=== PATIENT | male | born 1935 | race Caucasian/White ===

== ENCOUNTER 2017-01-21 01:59 | Inpatient (IN) ==
[2017-01-21] MEDS ORDERED: Ipratropium/Albuterol Neb 3 ML IH ONE (02:08)
[2017-01-21] MEDS ORDERED: Furosemide 40 MG/4 ML VIAL IVP ONE (02:35)
[2017-01-21] MEDS ORDERED: Nitroglycerin 1 INCH/GM PACKET TP ONE (02:35)
[2017-01-21 02:55] LABS: Basophils % 0.3 %; Eosinophils # 0.3 K/mcL (0.0-0.6); Hematocrit 36.1 % (37.5-50.1); Hemoglobin 10.8 g/dL (12.9-16.9); Immature Granulocytes % 0.7 % (0-4); Lymphocytes # 1.8 K/mcL (0.6-4.6); Mean Corpuscular HGB Conc 29.9 g/dL (31.6-35.5); Mean Corpuscular Hemoglobin 25.2 pg (28.0-33.3); Mean Corpuscular Volume 84.1 fL (83.0-100.0); Mean Platelet Volume 8.7 fL (9.4-12.4); Monocytes # 1.1 K/mcL (0.0-1.3); Monocytes % 8.4 %; Neutrophils # 9.6 K/mcL (1.6-8.9); Platelet Count 253 K/mcL (140-400); Red Blood Count 4.29 M/mcL (4.19-5.50); Red Cell Distribution Width 15.4 % (11.5-14.5); Segmented Neutrophils % 74.6 %
[2017-01-21 02:59] LABS: INR 1.3; Prothrombin Time 13.8 Seconds (9.4-12.1)
[2017-01-21 03:05] LABS: Calcium 10.2 mg/dL (8.6-10.8); Potassium 5.7 mEq/L (3.5-4.5)
[2017-01-21] MEDS ORDERED: Aspirin 81 MG TAB.CHEW PO ONE (03:50)
--- NOTE | 2017-01-21 03:52 | Emergency Department Note ---
Disposition Clinical Impression: Elevated troponin CHF exacerbation Qualifiers: Congestive heart failure type: unspecified congestive heart failure type Qualified Code(s): I50.9 - Heart failure, unspecified Disposition: Admitted As Inpatient Condition: Good General Adult HPI - General Chief complaint: ED Shortness of Breath/Dyspnea Stated complaint: SOB Time Seen by Provider: 01/21/17 02:03 Source: patient Limitations: no limitations Nursing Notes Reviewed: Yes Vital Signs Reviewed: Yes - History of Present Illness HPI Narrative: Patient presents to the ED for evaluation of shortness of breath. Patient woke his secondary to feeling like he could not breathe. Complained of wheezing. Patient has no history of COPD. Extensive cardiac history. Patient' s medication list that is present shows significant cardiac meds including Lasix 40 mg. Patient given limited history at this time secondary to respiratory distress. Denies fever. Denies productive cough. Pain Scale: 0 - Related Data Previous Rx's Medication Instructions Recorded Ibuprofen [Motrin] 400 mg PO Q8HR #30 tablet 05/28/16 OxyCODONE/APAP 5/325 [Percocet 1 each PO Q6HR PRN #8 tablet 05/28/16 5/325 MG] Allergies Allergy/AdvReac Type Severity Reaction Status Date / Time Bmvhnok-Vgr-Yld Reductase Allergy See Verified 12/22/15 07:54 Inhibitor Comments [Statins] Review of Systems: CONSTITUTIONAL: No weight loss, fever, chills, weakness or fatigue. HEENT: Eyes: No visual changes. Ears, Nose, Throat: No hearing loss, difficulty talking or unable to swallow. SKIN: No rash or itching. CARDIOVASCULAR: No chest pain, chest pressure or chest discomfort. No palpitations RESPIRATORY: Shortness of breath. GASTROINTESTINAL: No anorexia, nausea, vomiting or diarrhea. No abdominal pain or blood. GENITOURINARY: No burning on urination or hematuria. NEUROLOGICAL: No headache, dizziness, syncope, paralysis, ataxia, numbness or tingling in the extremities. No change in bowel or bladder control. MUSCULOSKELETAL: No muscle pain, back pain, joint pain or stiffness. Past Medical History - Past Medical History Medical history: Reports: arthritis, diabetes, GERD, hyperlipidemia, hypertension, myocardial infarction Surgical history: Reports: orthopedic, other Psychiatric history: Reports: no psych history - Social History Smoking Status: Never smoker Alcohol use: Reports: none Drug use: Reports: none Physical Exam General appearance: Patient And speaking in 2 word sentences. Eyes: anicteric sclerae, moist conjunctivae; PERRL HENT: Atraumatic; oropharynx clear with moist mucous membranes and no mucosal ulcerations Neck: Normal inspection; Trachea midline; FROM, supple Lungs: Decreased lung sounds with rales at the bases. CV: RRR, no MRGs Abdomen: Soft, non-tender; no rebound or gaurding Extremities: Peripheral edema Skin: Normal temperature; no rash, ulcers or lesions Psych: Appropriate mood and affect Neuro: alert and oriented to person, place and time - General Limitations: no limitations General appearance: alert, in no apparent distress Course - Reevaluation(s) Reevaluation #1: Patient significantly improved with treatments as he is now talking in full sentences. - Consultations Consultation #1: HospitalistGayathri, accepts Vital Signs Temperature 98.2 F 01/21/17 02:03 Pulse Rate 92 01/21/17 02:03 Respiratory Rate 26 01/21/17 02:03 Blood Pressure 0/0 01/21/17 02:03 O2 Sat by Pulse Oximetry 97 01/21/17 02:03 Temperature 98.2 F 01/21/17 02:03 Pulse Rate 80 01/21/17 04:05 Respiratory Rate 15 01/21/17 04:38 Blood Pressure 164/91 01/21/17 04:38 O2 Sat by Pulse Oximetry 98 01/21/17 02:29 Oxygen Delivery Oxygen Delivery Room Air Medical Decision Making - Lab Data Result diagrams: 01/21/17 02:44 01/21/17 02:44 Lab Results 01/21/17 01/21/17 01/21/17 Range/Units 02:44 02:44 02:44 WBC 12.9 H (4.3-11.1) K/mcL RBC 4.29 (4.19-5.50) M/mcL Hgb 10.8 L (12.9-16.9) g/dL Hct 36.1 L (37.5-50.1) % MCV 84.1 (83.0-100.0) fL MCH 25.2 L (28.0-33.3) pg MCHC 29.9 L (31.6-35.5) g/dL RDW 15.4 H (11.5-14.5) % Plt Count 253 (140-400) K/mcL MPV 8.7 L (9.4-12.4) fL Immature Gran % 0.7 (0-4) % Seg Neutrophils % 74.6 % Lymphocytes % 14.0 % Monocytes % 8.4 % Eosinophils % 2.0 % Basophils % 0.3 % Neutrophils # 9.6 H (1.6-8.9) K/mcL Lymphocytes # 1.8 (0.6-4.6) K/mcL Monocytes # 1.1 (0.0-1.3) K/mcL Eosinophils # 0.3 (0.0-0.6) K/mcL Basophils # 0.0 (0.0-0.2) K/mcL PT 13.8 H (9.4-12.1) Seconds INR 1.3 Sodium 139 (136-145) mEq/L Potassium 5.7 H (3.5-4.5) mEq/L Chloride 108 (98-109) mEq/L Carbon Dioxide 22 (19-29) mEq/L BUN 35 H (8-26) mg/dL Creatinine 2.35 H (0.72-1.25) mg/dL Est GFR ( Amer) 33 L (> 60) Est GFR (Non-Af Amer) 27 L (> 60) BUN/Creatinine Ratio 15 (6-26) Glucose 127 H (70-99) mg/dL Calculated Osmolality 298 (280-300) Calcium 10.2 (8.6-10.8) mg/dL Troponin I (0-0.03) ng/mL B-Natriuretic Peptide (0-100) pg/mL 01/21/17 01/21/17 Range/Units 02:44 02:44 WBC (4.3-11.1) K/mcL RBC (4.19-5.50) M/mcL Hgb (12.9-16.9) g/dL Hct (37.5-50.1) % MCV (83.0-100.0) fL MCH (28.0-33.3) pg MCHC (31.6-35.5) g/dL RDW (11.5-14.5) % Plt Count (140-400) K/mcL MPV (9.4-12.4) fL Immature Gran % (0-4) % Seg Neutrophils % % Lymphocytes % % Monocytes % % Eosinophils % % Basophils % % Neutrophils # (1.6-8.9) K/mcL Lymphocytes # (0.6-4.6) K/mcL Monocytes # (0.0-1.3) K/mcL Eosinophils # (0.0-0.6) K/mcL Basophils # (0.0-0.2) K/mcL PT (9.4-12.1) Seconds INR Sodium (136-145) mEq/L Potassium (3.5-4.5) mEq/L Chloride (98-109) mEq/L Carbon Dioxide (19-29) mEq/L BUN (8-26) mg/dL Creatinine (0.72-1.25) mg/dL Est GFR ( Amer) (> 60) Est GFR (Non-Af Amer) (> 60) BUN/Creatinine Ratio (6-26) Glucose (70-99) mg/dL Calculated Osmolality (280-300) Calcium (8.6-10.8) mg/dL Troponin I 0.04 H* (0-0.03) ng/mL B-Natriuretic Peptide 1132 H (0-100) pg/mL Critical Care Time Critical Care Time: Yes Total Critical Care Time: 45 Attestation: Critical care performed: Time is exclusive of separately billable procedures. Time includes: direct patient care, patient reassessment, coordination of patient care, interpretation of data (laboratory data, radiology data, and respiratory data), review of patient's medical records, medical consultation and documentation of patient care. Procedures included in critical care time: Procedures excluded from critical care time: Attestation Statement - Attestation Attestation: I, Lalit Penny MD, personally evaluated this patient and discussed their management with the resident physician. I reviewed the resident's note and agree with the documented findings, medical decision making, and plan of care. 82-year-old male presents to the emergency department with a complaint of awakening from sleep with shortness of breath. No cough or fever. No chest pain. Admits to some intermittent shortness of breath but states he was fine when he went to bed. No increased swelling of the ankles. On examination patient is a well-developed well-nourished elderly male in mild respiratory distress. He is alert and oriented. There is no cyanosis or diaphoresis. Breath sounds are decreased bilaterally with some bibasilar rales. Heart regular rate and rhythm. Abdomen soft and nontender with normal bowel sounds. 1+ pedal edema. Patient placed on BiPAP. Labs reviewed. Chest x-ray shows bibasilar atelectasis or consolidation. Moderate cardiomegaly. Nonspecific interstitial prominence. The hospitalist, Dr. Perrin, was consulted and accepted admission of the patient.
[2017-01-21] MEDS ORDERED: Naloxone 0.4 MG/ML INJ IVP PRN (05:14)
[2017-01-21] MEDS ORDERED: Ondansetron 4 MG/2 ML VIAL IVP PRN (05:14)
[2017-01-21] MEDS ORDERED: Acetaminophen 325 MG TABLET PO PRN (05:14)
[2017-01-21] MEDS ORDERED: 0.9 % Sodium Chloride 1,000 ML IVC SCH (05:15)
[2017-01-21] MEDS ORDERED: Calcium Gluconate 2,000 MG in D5% in Water 100 ML IVPB ONE (05:19)
[2017-01-21] MEDS ORDERED: D5% in Water 1,000 ML IVC PRN (05:20)
[2017-01-21] MEDS ORDERED: Dextrose Gel 15 GM PO PRN ×2 (05:20)
[2017-01-21] MEDS ORDERED: *HR* Dextrose 50 % in Water (Syg) 50 ML SYRINGE IVP PRN (05:20)
[2017-01-21 05:47] LABS: Hemoglobin A1C 7.3 %
--- NOTE | 2017-01-21 05:47 | Internal Med History&Physical ---
Date of Encounter: 01/21/17 Time of Encounter: 05:30 Assessment and Plan (1) CHF exacerbation Current visit: Yes Status: Acute Acute exacerbation of congestive heart failure, unspecified - causing acute respiratory failure and bilateral lower leg edema Continue IV Lasix, beta adeel and losartan BN peptide 1132 strict I's and O's and daily weight Echocardiogram pending Continue aspirin and metoprolol Continue BiPAP Qualifiers: Congestive heart failure type: unspecified congestive heart failure type Qualified Code(s): I50.9 - Heart failure, unspecified (2) Community acquired bacterial pneumonia Current visit: Yes Status: Acute Probable community-acquired pneumonia, likely bacterial, possible strep pneumoniae - also causing respiratory failure Empiric IV Rocephin and azithromycin DuoNeb breathing treatment cultures pending Chest x-ray - moderate cardiomegaly with possible consolidation (3) Elevated troponin Current visit: Yes Status: Acute Likely due to CHF, Trend troponin EKG pending (4) CAD (coronary artery disease) Current visit: Yes Status: Chronic History of coronary artery disease and LA - with history of stents Troponin 0.04, will trend troponins Continue aspirin Patient is allergic to statins Qualifiers: Coronary Disease-Associated Artery/Lesion type: unspecified vessel or lesion type [place] vs. transplanted heart: [place] heart Associated angina: without angina Qualified Code(s): I25.10 - Atherosclerotic heart disease of [place] coronary artery without angina pectoris (5) Hypertension Current visit: Yes Status: Chronic Essential hypertension, uncontrolled, monitor Start metoprolol and losartan, continue Lasix Qualifiers: Hypertension type: essential hypertension Qualified Code(s): I10 - Essential (primary) hypertension (6) CKD (chronic kidney disease) stage 3, GFR 30-59 ml/min Current visit: Yes Status: Chronic Creatinine likely at baseline Labs in a.m. (7) DVT prophylaxis Current visit: Yes Status: Acute Continue heparin subcutaneous Internal Medicine - H&P: HPI Chief complaint: Shortness of breath Admitted From: Emergency Dept History of present illness: Mr. Bach is a 82 year old male with PMH of arthritis, GERD, hyperlipidemia, HTN, probable CKD, CAD and DM. He presents to the ED with complaints of shortness of breath. Patient states shortness of breath started about 1 week ago and symptoms gradually worsened. It is worse with exertion and also worse when laying flat. No alleviating factors. Patient denies chest pain and denies palpitations denies lightheadedness or dizziness. Denies abdominal pain or nausea or vomiting. Patient denies history of COPD. He states he has had a history of LA and is unsure about congestive heart failure. On examination patient is awake and alert. He is on BiPAP. He is able to answer questions and provide history. No family members at bedside. Patient also complains of worsening bilateral lower leg edema. No other associated symptoms. Initial evaluation in the ED revealed elevated BNP peptide, slightly elevated troponin, elevated WBC and chest x-ray revealed moderate cardiomegaly and possible consolidation. Patient to be admitted for respiratory failure secondary to acute CHF exacerbation and probable pneumonia. Patient will be continued on BiPAP. Patient has been explained about his condition and plan of care. He understood and agreed. No unanswered questions. CODE STATUS full code. Past Med Surg Social Fam HX - Past Medical History Medical history: arthritis, CVA, diabetes, GERD, hyperlipidemia, hypertension, myocardial infarction Psychiatric history: no psych history - Past Surgical History Surgical History: orthopedic, other - Social History Smoking Status: Never smoker Alcohol use: none Drug use: none Internal Medicine - H&P: Meds Ibuprofen [Motrin] 400 mg PO Q8HR #30 tablet 05/28/16 [Rx] OxyCODONE/APAP 5/325 [Percocet 5/325 MG] 1 each PO Q6HR PRN #8 tablet 05/28/16 [ Rx] Allergies Sszsjaj-Zyu-Hvz Reductase Inhibitor [Statins] Allergy (Verified 12/22/15 07:54) See Comments All Systems PM: A 10-system review of systems was performed and is negative for pertinent findings except as documented above in the HPI. - Constitutional Constitutional: fatigue, weakness, no fever(s) - EENT Eyes: no blurry vision - Cardiovascular Cardiovascular ROS IM: dyspnea, dyspnea on exertion, orthopnea, paroxysmal nocturnal dyspnea, no chest pain, no diaphoresis, no syncope - Respiratory Respiratory: dyspnea, dyspnea on exertion, no cough, no wheezing, no chest congestion - Gastrointestinal Gastrointestinal: abdominal pain, no cramping, no diarrhea, no nausea, no vomiting - Genitourinary Genitourinary ROS male: no dysuria - Musculoskeletal Musculoskeletal ROS IM: arthralgias - Neurological Neurological ROS: no abnormal gait, no abnormal speech, no dizziness, no focal weakness, no loss of vision, no weakness - Constitutional Vitals: Temp Pulse Resp BP Pulse Ox 98.9 F 81 23 164/82 98 01/21/17 05:32 01/21/17 05:32 01/21/17 05:32 01/21/17 05:32 01/21/17 05:32 General appearance: Present: mild distress, A&O X 3, pleasant, obese, answers questions appropriately Exam: Ill-appearing, on BiPAP - Head Head exam: Present: atraumatic - Eye Eye exam: Present: EOMI - ENT ENT exam: Present: mucous membranes dry - Neck Neck exam general surgery: Present: supple - Respiratory Respiratory exam: Present: decreased breath sounds (Slightly decreased), rales ( Bilateral basilar), rhonchi (Mild bilateral). Absent: wheezes, tachypnea - Cardiovascular Cardiovascular exam: Present: RRR, +S1, +S2, systolic murmur - GI/Abdominal GI/Abdominal exam: Present: distended (Obese), soft, no peritoneal signs. Absent: firm, guarding, tenderness - Extremities Exam Extremities exam: Present: pedal edema (Bilateral pitting edema 3+), radial pulses palpable and symetrical. Absent: cyanotic, tenderness - Neurological Exam Neurological exam: Present: alert, oriented X3, no focal deficits Internal Med - H&P Results - Labs CBC & Chem 7: 01/21/17 02:44 01/21/17 02:44
[2017-01-21] MEDS: Famotidine 20 MG/2 ML VIAL IVP SCH ×2 (05:54→18:17)
[2017-01-21] MEDS: Azithromycin 500 MG in D5% in Water 250 ML IVPB SCH (05:54)
[2017-01-21 05:57] LABS: Chol/HDL Ratio 5.5 (0-4.9); Magnesium 1.8 mg/dL (1.6-2.6)
[2017-01-21] MEDS: *HR* Heparin 5,000 UNIT/ML VIAL SQ SCH ×2 (05:57→18:18)
[2017-01-21] MEDS: Insulin LISPRO 300 UNITS/3 ML VIAL SQ SCH ×3 (06:01→18:17)
[2017-01-21 06:59] LABS: ABG Base Excess 0.1 mEq/L (-2.0 to 3.0); ABG HCO3 25.4 mEQ/L (21-27); ABG Oxygen Saturation 95 % (95-98); ABG PCO2 43 mmHg (35-45); ABG PH 7.38 pH Units (7.32-7.45); ABG PO2 80 mmHg (85-104); ABG TCO2 26.7 mEq/L (20-26)
[2017-01-21 07:00] LABS: Blood Gas FiO2 40 %
[2017-01-21] MEDS: Ipratropium/Albuterol Neb 3 ML IH SCH ×5 (08:09→23:37)
[2017-01-21] MEDS: Furosemide 40 MG/4 ML VIAL IVP SCH ×2 (08:27→22:04)
[2017-01-21] MEDS: Aspirin 81 MG TAB.CHEW PO SCH (08:27)
--- NOTE | 2017-01-21 11:53 | Internal Med Progress Note ---
<Rick Qiu - Last Filed: 01/21/17 16:52> Date of Encounter: 01/21/17 Time of Encounter: 09:00 - Assessment and plan (1) Systolic CHF, acute Current Visit: Yes Status: Acute Assessment and plan: Patient presents with clinical findings of acute fluid overload and systolic heart failure. Patient has TTE shows decreased LVEF of 35% with regional wall motion abnormalities suggestive of ischemic cardiomyopathy.Last TTE 03/17/16 ( [facility]) demonstrated preserved LVEF, 55-60% with diastolic dysfunction. BNP of 1132, diffuse rhonchi appreciated upon auscultation, diffuse 2+ pitting edema. Plan: - Continue maximizing cardiac coverage - Cardiology consulted and involved in patient care - Continue Lasix 40 mg IV twice a day - Strict daily weights, intake and output measurements - Strict 2 L fluid restriction and 2 g sodium restriction (2) Hyperkalemia, diminished renal excretion Current Visit: Yes Status: Acute Assessment and plan: Patient has hyperkalemia with a potassium of 6.2. Patient has a history of hyperkalemia with elevated potassium levels around 5.5 upon outpatient clinical chart review. This is in the setting of stage III renal failure. - Patient received calcium gluconate and Kayexalate in the emergency department with potassium did rise. - EKG performed shows some inverted T waves but no signs of T-wave elevation - Stat recheck a potassium - If potassium is not improved may need to consult nephrology (3) Elevated troponin Current Visit: Yes Status: Acute Assessment and plan: Troponins elevation from 0.04-0.20- 0.52. Patient is without chest pain, new echo demonstrates reduced ejection fraction and clinical findings demonstrate acute systolic heart failure exacerbation. - Patient has been seen by cardiology, Offered Cath but he has chosen medical management at this time. (4) CAD (coronary artery disease) Current Visit: Yes Status: Chronic Qualifiers: Coronary Disease-Associated Artery/Lesion type: unspecified vessel or lesion type [place] vs. transplanted heart: [place] heart Associated angina: without angina Qualified Code(s): I25.10 - Atherosclerotic heart disease of [place] coronary artery without angina pectoris (5) CKD (chronic kidney disease) stage 3, GFR 30-59 ml/min Current Visit: Yes Status: Chronic (6) Hypertension Current Visit: Yes Status: Chronic Qualifiers: Hypertension type: essential hypertension Qualified Code(s): I10 - Essential (primary) hypertension (7) DVT prophylaxis Current Visit: Yes Status: Acute - Subjective Interval history: Mr. Bcah 82-year-old male admitted with CHF exacerbation and CAP has been seen and evaluated patient bedside this morning. He says that he is feeling well but continues to be short of breath which is exacerbated with movements and laying flat. He has to sleep at an elevated incline to feel that he can breathe effectively. He denies any chest pain chest pressure numbness or tingling or radiation to his arm jaw or back. He is hungry and would like to eat. He denies any other concerning symptoms. When asked about his diffuse edema he said that this is constant and not new. - Constitutional Vitals: Temp Pulse Resp BP Pulse Ox 98.1 F 73 16 143/84 93 01/21/17 11:21 01/21/17 11:21 01/21/17 11:21 01/21/17 11:21 01/21/17 11:21 General appearance: Present: mild distress, A&O X 3, pleasant, obese, answers questions appropriately Exam: General: Patient alert, awake, oriented 3, interactive, in no acute distress HEENT: Normocephalic, atraumatic, pupils equal reactive to light, nasal cavity patent and open septum median position, oral mucosa moist, uvula midline, neck supple trachea midline no palpable lymphadenopathy, no thyromegaly. Chest: Symmetric bilateral correlating with respiratory effort, effort mildly labored. Cardiac: Regular rate and rhythm, positive S1, S2, no bruits appreciated bilateral carotids, Radial pulses 2+ bilateral, posterior tibial and dorsal pedal pulses 2+ bilateral. Respiratory: Bilateral lung bases diminished with rhonchi appreciated throughout. Tachypnea Abdomen: Soft, nontender, positive bowel sounds, no palpable masses appreciated on examination, patient has pitting edema up to his mid back. Extremities: Symmetric bilateral, bilateral 2+ lower extremity edema with chronic venous stasis changes on the bilateral shins. patient moving all 4 extremities spontaneously. Neurologic: No focal deficits appreciated on examination. Face symmetric, muscle strength symmetric bilateral upper and lower extremities. Skin: Anasarca, clinical findings of fluid overload Internal Medicine: Result - Labs CBC & Chem 7: 01/21/17 02:44 01/21/17 14:19 Labs: BMP 01/21/17 07:54 Potassium 6.2 H Cardiac Enzymes 01/21/17 Range/Units 07:54 Troponin I 0.20 H* (0-0.03) ng/mL - ABG Interpretation ABG results: ABG ABG pH 7.38 pH Units (7.32-7.45) 01/21/17 06:50 ABG pCO2 43 mmHg (35-45) 01/21/17 06:50 ABG pO2 80 mmHg (85-104) L 01/21/17 06:50 ABG O2 Saturation 95 % (95-98) 01/21/17 06:50 PT/INR, D-dimer PT 13.8 Seconds (9.4-12.1) H 01/21/17 02:44 Consult Discharge Plan - Plan Referrals: Kimo Bhatti MD [Primary Care Provider] - <Fito Soto P - Last Filed: 01/21/17 17:23> Date of Encounter: 01/21/17 - Constitutional Vitals: Temp Pulse Resp BP Pulse Ox 97.9 F 73 18 139/74 93 01/21/17 15:35 01/21/17 15:35 01/21/17 16:21 01/21/17 15:35 01/21/17 16:21 Internal Medicine: Result - Labs CBC & Chem 7: 01/21/17 02:44 01/21/17 14:19 Labs: BMP 01/21/17 01/21/17 07:54 14:19 Potassium 6.2 H 5.0 H D Cardiac Enzymes 01/21/17 01/21/17 Range/Units 07:54 14:19 Troponin I 0.20 H* 0.52 H* (0-0.03) ng/mL - ABG Interpretation ABG results: ABG ABG pH 7.38 pH Units (7.32-7.45) 01/21/17 06:50 ABG pCO2 43 mmHg (35-45) 01/21/17 06:50 ABG pO2 80 mmHg (85-104) L 01/21/17 06:50 ABG O2 Saturation 95 % (95-98) 01/21/17 06:50 PT/INR, D-dimer PT 13.8 Seconds (9.4-12.1) H 01/21/17 02:44 - Attending Attestation I examined this patient and my medical decision-making was reviewed with the MODEL [employer]KER PLASTER/PA/Advanced Practice Nurse/Resident Physician. I agree with the documented findings, disposition and treatment plan as described except to the extent set forth below. cardiology input appreciated.
--- NOTE | 2017-01-21 13:17 | Cardiology Consult Note ---
Date of Encounter: 01/21/17 Time of Encounter: 13:00 Assessment and Plan (1) Elevated troponin Current Visit: Yes Status: Acute Mild troponin elevation, 0.04, 0.20 in the setting of CAP, CKD IV, and suspected CHF exacerbation, non-diagnostic for ACS; likely demand ischemia. He denies chest pain or discomfort. Mild lateral ST depression noted per ECG compared to previous ECG dated 2009. Follows with Cardiology at [facility], Dr. Rivas. Known CAD s/p PCI (2013). Continue asa and betablocker. Statin listed as allergy, pt. states causes muscle weakness. Will add long-acting nitrate. Agree with echocardiogram, further recommendations to follow. Recommend close outpatient follow-up with Dr. Rivas, [employer] Teacher at [employer]. (2) CHF exacerbation Current Visit: Yes Status: Acute Patient presents with 2 week history of worsening shortness of breath and edema ; symptoms likely multifactoral in etiology. CXR shows CAP. Known CKD-IV, has reportedly declined outpatient referral to Nephrology. Last TTE 03/17/16 ([facility] records) demonstrated preserved LVEF, 55-60% with diastolic dysfunction. BNP 1132, CXR demonstrated bibasilar atelectasis or consolidation with moderate cardiomegaly. Weight up nearly 10 lbs since outpatient visit 12/19/16. Significant volume overload upon exam. Cumulative I&O: -1855 mL. Continue IV diuresis. Continue home betablocker and ARB. Monitor kidney function closely given hx of CKD-IV. Continue strict I&O's, daily weights, Na/fluid restriction diet. Echocardiogram pending. Qualifiers: Congestive heart failure type: unspecified congestive heart failure type Qualified Code(s): I50.9 - Heart failure, unspecified Discussion w patient/family: The assessment and plan as outlined above was discussed with the patient and/or family members who expressed understanding and agreement. All questions were answered. Thank you for involving us in the care of your patient. Please call with any questions. The patient will be discussed and reviewed with Dr. Cortez; changes to be made accordingly. History of Present Illness Consult date: 01/21/17 Requesting physician: Rick Qiu Consult reason: Elevated troponin Chief complaint: Dyspnea, edema History of present illness: Mr. Bach is a 82 year old male with PMHx significant for CAD s/p PCI, PAD, DMII, CKD-IV, chronic diastolic CHF, HTN, SLOANE (non-compliant with CPAP), and CVA with residual right-sided weakness who presented to [facility] with worsening shortness of breath associated with worsening bilateral upper and lower extremity edema. He states he woke up from sleep with sudden onset of dyspnea which prompted ED evaluation. Initial ABG demonstrated P02 of 80%, he was placed on Bipap which has since improved symptoms. He follows with [facility] Cardiology, has loop recorder s/p CVA also followed by [employer] [address] Rivas. Recent testing (per [facility] records): CTA neck 03/24/16: 64% right ICA stenosis and 22% left ICA TTE 03/17/16: EF 55-60% with diastolic dysfunction [facility] 2013: PCI to LAD, developed ISR and LAD was re-stented later in 2013, also with PTCA 99% ostial D1 lesion; residual 30% mLCx stenosis and 90% OM-2 and 40% RCA lesion being medically treated. Past Med Surg Social Fam HX - Past Medical History Attestation: Yes The following information was validated with the patient. Source: patient, old records reviewed Medical history: arthritis, coronary artery disease, CVA, diabetes, GERD, hyperlipidemia, hypertension, myocardial infarction, renal disease, other (SLOANE) Psychiatric history: no psych history - Past Surgical History Surgical History: angioplasty/stent (2013), orthopedic, other, other (loop recorder) - Social History Smoking Status: Never smoker Alcohol use: none Drug use: none Medications and Allergies Acetaminophen [Tylenol] 650 mg PO Q6HR PRN 01/21/17 [History] Allopurinol [Zyloprim 100 MG] 100 mg PO DAILY 01/21/17 [History] Aspirin 81 mg PO DAILY 01/21/17 [History] Atenolol [Tenormin] 50 mg PO DAILY 01/21/17 [History] Citalopram [CeleXA] 20 mg PO DAILY 01/21/17 [History] Clopidogrel [Plavix] 75 mg PO DAILY 01/21/17 [History] Clotrimazole 1% CRM [Lotrimin 1%] 1 appl TP BID 01/21/17 [History] Fexofenadine HCl [Allergy Relief] 180 mg PO DAILY PRN 01/21/17 [History] Furosemide [Lasix] 40 mg PO DAILY 01/21/17 [History] Insulin Glargine,Hum.rec.anlog [Lantus Solostar] 15 unit SQ HS 01/21/17 [History ] Magnesium Oxide [Mgo] 400 mg PO DAILY 01/21/17 [History] Melatonin 5 mg PO HS 01/21/17 [History] NIFEdipine [Nifedipine ER] 60 mg PO DAILY 01/21/17 [History] Nitroglycerin [Nitrostat] 0.4 mg SL AD PRN 01/21/17 [History] Oxycodone HCl/Acetaminophen [Percocet 5-325 mg Tablet] 1 tab PO TID PRN [History] Pantoprazole Sodium [Protonix] 40 mg PO DAILY 01/21/17 [History] Allergies Bwlwjvm-Ptv-Dvo Reductase Inhibitor [Statins] Allergy (Verified 12/22/15 07:54) See Comments All Systems Review: A 10-system review of systems was performed and is negative for pertinent findings except as documented above in the HPI. - Cardiovascular Cardiovascular: as per HPI Physical Examination Vital Signs, Last 4 Hours Temp Pulse Resp BP Pulse Ox 01/21/17 11:41 20 90 01/21/17 11:21 98.1 F 73 16 143/84 93 General: Conversant, No Apparent Distress HEENT: Atraumatic, Normocephaly Cardiac: Reg Rate and Rhythm, Normal S1 and S2 Lungs: Other (Rales, diminished bibasilar) Neuro: Alert and responsive, Other (residual right-sided weakness) Abdomen: Soft Skin: No rashes noted on visualized skin Extremities: Other (significant dependent edema +2-3 pitting to bilateral upper and lower extremities/sacrum) Results 01/21/17 02:44 01/21/17 07:54 Lab Results 01/21/17 01/21/17 07:54 07:54 Potassium 6.2 H Troponin I 0.20 H* - Imaging and Cardiology Chest Xray: report reviewed Echo: report reviewed Cardiac cath: report reviewed Other Results: 12 hour tele: avg HR=72 SR. No significant event noted. - EKG Interpretation EKG results cardiology: personally reviewed Consult Discharge Plan - Plan Referrals: Kimo Bhatti MD [Primary Care Provider] -
[2017-01-21] MEDS: Isosorbide MONOnitrate (24 HR) 30 MG TAB.ER.24H PO SCH (14:17)
--- NOTE | 2017-01-21 15:11 | Electrocardiograph Report ---
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
--- NOTE | 2017-01-21 15:46 | Electrocardiograph Report ---
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
[2017-01-21] MEDS: Metoprolol XL (24 HR) Succ 25 MG TAB.ER.24H PO SCH (22:04)
[2017-01-22 04:29] LABS: Bilirubin,Urine Negative (Negative); Blood,Urine Small (Negative); Clarity,Urine Clear (Clear); Color,Urine Yellow (Yellow); Glucose,Urine (UA) Normal (Normal); Ketones,Urine Negative (Negative); Leukocyte Esterase,Urine Negative (Negative); Nitrite,Urine Negative (Negative); Protein,Urine 30 mg/dL (Neg-Trace); Urobilinogen,Urine Normal (Normal)
[2017-01-22 04:32] LABS: Bacteria,Urine None Seen per hpf (None-Few); Hyaline Casts,Urine None Seen per lpf (None-Few); Squamous Epithelial Cell,Urine None Seen per lpf (None-Few); WBC,Urine 0-3 per hpf (0-3)
[2017-01-22] MEDS: Ipratropium/Albuterol Neb 3 ML IH SCH ×5 (04:39→20:27)
[2017-01-22 05:00] LABS: Basophils % 0.2 %; Eosinophils # 0.1 K/mcL (0.0-0.6); Eosinophils % 0.9 %; Hematocrit 31.9 % (37.5-50.1); Hemoglobin 10.1 g/dL (12.9-16.9); Immature Granulocytes % 0.5 % (0-4); Lymphocytes # 2.2 K/mcL (0.6-4.6); Lymphocytes % 24.2 %; Mean Corpuscular HGB Conc 31.7 g/dL (31.6-35.5); Mean Platelet Volume 9.3 fL (9.4-12.4); Monocytes % 10.5 %; Neutrophils # 5.8 K/mcL (1.6-8.9); Platelet Count 234 K/mcL (140-400); Red Blood Count 3.89 M/mcL (4.19-5.50); Red Cell Distribution Width 15.3 % (11.5-14.5); Segmented Neutrophils % 63.7 %
[2017-01-22 05:32] LABS: Albumin 2.8 g/dL (3.5-5.0); Albumin/Globulin Ratio 0.8 (1.1-2.2); Bilirubin,Total 0.6 mg/dL (0.2-1.2); Globulin 3.7 g/dL (2.4-3.5); Potassium 4.6 mEq/L (3.5-4.5); Total Protein 6.5 g/dL (6.0-8.3)
[2017-01-22] MEDS: *HR* Heparin 5,000 UNIT/ML VIAL SQ SCH ×2 (05:44→17:03)
[2017-01-22] MEDS: Famotidine 20 MG/2 ML VIAL IVP SCH (05:44)
[2017-01-22] MEDS: Azithromycin 500 MG in D5% in Water 250 ML IVPB SCH (05:44)
--- NOTE | 2017-01-22 08:39 | Cardiology Progress Note ---
Date of Encounter: 01/22/17 Time of Encounter: 08:35 Assessment and Plan (1) CHF exacerbation Current Visit: Yes Status: Acute Acute sytolic CHF. Presented with 2 week history of worsening shortness of breath and edema, and 10 lb weight gain. Last TTE 03/17/16 ([facility] records) demonstrated preserved LVEF, 55-60% with diastolic dysfunction. Echocardiogram this admission shows EF 35% with segmental systolic dysfunction. Mild LVH. RV normal in size and function. BNP 1132, CXR demonstrated bibasilar atelectasis or consolidation with moderate cardiomegaly. Negative 4175 ML for 24 hours and negative 5895 for stay. Discussed with Dr. Qiu, IV lasix decreased by half d/t rapid diuresis and increasing creatinine. Nephrology was consulted. Patient reported to have declined nephrology evaluation in the past. Continues to have 2+ pitting edema up to his abdomen. Continue strict I&O's, daily weights, Na/fluid restriction diet. Continue beta-adeel. ARB held d/t hyperkalemia and A/CKD. Potassium up to 6.2 and now 4.9. Qualifiers: Congestive heart failure type: unspecified congestive heart failure type Qualified Code(s): I50.9 - Heart failure, unspecified (2) Elevated troponin Current Visit: Yes Status: Acute Mild troponin elevation, 0.04, 0.20, 0.52, 0.57 in the setting of CHF with reduced EF, possible CAP, CKD IV. Likely demand ischemia rather than ACS. EF 35% with segmental systolic dysfunction. He denies chest pain or discomfort. Mild lateral ST depression noted per ECG compared to previous ECG dated 2009. Follows with Cardiology at [facility], Dr. Rivas. Known CAD s/p PCI (2013). Continue asa, plavix, and betablocker. Statin listed as allergy, pt. states causes muscle weakness. Long-acting nitrate added. Denies chest pain. [facility] indications, benefits, risks, and alternatives discussed and he declines d/ t concern for worsening renal function. He prefers conservative management. Recommend close outpatient follow-up with Dr. Rivas, Educational Technologist at [place]. Discussion w patient/family: The assessment and plan as outlined above was discussed with the patient and/or family members who expressed understanding and agreement. All questions were answered. Thank you for involving us in the care of your patient. Please call with any questions. Subjective Principal diagnosis: elevated troponin, demand ischemia in the setting of CHF Objective Vital Signs, Last 4 Hours Temp Pulse Resp BP Pulse Ox 01/22/17 07:48 20 95 01/22/17 07:18 98.4 F 87 20 149/92 93 01/22/17 04:40 18 96 General: Conversant, No Apparent Distress HEENT: Atraumatic, Normocephaly, Mucus Membranes Moist Neck: No JVD, Normal carotid pulses Cardiac: Reg Rate and Rhythm, Normal S1 and S2, No Murmur, Other Lungs: Other (diminished bases, respirations east on 3L NC. ) Neuro: Alert and responsive, No focal deficits noted Abdomen: Soft, Non-Tender Skin: No rashes noted on visualized skin Musculoskeletal: No Chest Wall Tenderness Extremities: No Clubbing, No Cyanosis, Normal Pulses, Other (2+ pitting edema up to his abdomen.) Results 01/22/17 04:38 01/22/17 04:38 Lab Results 01/21/17 01/21/17 01/21/17 07:54 14:19 14:19 WBC Hgb Hct Plt Count Sodium Potassium 5.0 H D Chloride Carbon Dioxide BUN Creatinine Glucose Calcium Total Bilirubin AST ALT Alkaline Phosphatase Troponin I 0.20 H* 0.52 H* 01/21/17 01/22/17 01/22/17 19:43 04:38 04:38 WBC 9.1 Hgb 10.1 L Hct 31.9 L Plt Count 234 Sodium 140 Potassium 4.6 H Chloride 106 Carbon Dioxide 24 BUN 34 H Creatinine 2.62 H Glucose 155 H Calcium 10.0 Total Bilirubin 0.6 AST 16 ALT 7 Alkaline Phosphatase 94 Troponin I 0.57 H* - Imaging and Cardiology Echo: report reviewed - EKG Interpretation EKG results cardiology: other (24 hour telemetry review shows avg HR 80 bpm.) Consult Discharge Plan - Plan Referrals: Kimo Bhatti MD [Primary Care Provider] - 02/01/17 10:15 am
--- NOTE | 2017-01-22 08:48 | Internal Med Progress Note ---
<Rick Qiu - Last Filed: 01/22/17 08:46> Date of Encounter: 01/22/17 Time of Encounter: 08:46 - Assessment and plan (1) Systolic CHF, acute Current Visit: Yes Status: Acute Assessment and plan: Patient presents with clinical findings of acute fluid overload and systolic heart failure. Patient has TTE shows decreased LVEF of 35% with regional wall motion abnormalities suggestive of ischemic cardiomyopathy.Last TTE 03/17/16 ( [facility]) demonstrated preserved LVEF, 55-60% with diastolic dysfunction. BNP of 1132, diffuse rhonchi appreciated upon auscultation, diffuse 2+ pitting edema. 01/22/2017: Patient is in stable condition and asymptomatic. Continues to refuse left heart catheterization. Current fluid balance is -5895 ml, patient weight dropped by 2 kg. Plan: - Continue maximizing cardiac coverage - Cardiology consulted and involved in patient care - We will reduce Lasix to 40 mg IV once a day with current renal function - Strict daily weights, intake and output measurements - Strict 2 L fluid restriction and 2 g sodium restriction - Cardiology added on long-acting nitrate (2) Hyperkalemia, diminished renal excretion Current Visit: Yes Status: Acute Assessment and plan: Patient was admitted with hyperkalemia in the setting of CPAP and NSTEMI. This is in the setting of stage III renal failure. Outpatient records demonstrated a chronic elevation in his potassium around 5.5 for the last year. This is likely secondary to his poor renal function - Patient received calcium gluconate and Kayexalate in the emergency department - Potassium is 4.6 this morning (3) Elevated troponin Current Visit: Yes Status: Acute Assessment and plan: Troponins elevation from 0.04-0.20- 0.52. Patient is without chest pain, new echo demonstrates reduced ejection fraction and clinical findings demonstrate acute systolic heart failure exacerbation. - Patient has been seen by cardiology, Offered Cath but he has chosen medical management at this time. - Echocardiogram as mentioned above demonstrating ischemic cardiomyopathy with a reduced ejection fraction (4) CAD (coronary artery disease) Current Visit: Yes Status: Chronic Assessment and plan: Known history of coronary artery disease, patient has an allergy to statin, this was discussed with cardiology and he is on a long-acting nitrate now. (5) CKD (chronic kidney disease) stage 3, GFR 30-59 ml/min Current Visit: Yes Status: Chronic Assessment and plan: Known history of stage III chronic kidney disease with an average creatinine of 2.35. He also was found have an elevated potassium which is been elevated for roughly a year. - Patient has refused nephrology in the past. - Developed mild acute kidney injury in the setting of IV diuresis, will reduce to 40 mg Lasix IV once a day. - Patient was agreeable to having nephrology on board, this is been discussed with Dr. Bauer. Plan: - Nephrology to evaluate patient - Reduce IV Lasix to 40 mg once a day IV - Renally dose antibiotics and avoid nephrotoxic medications - Monitor renal function daily (6) Hypertension Current Visit: Yes Status: Chronic Assessment and plan: Currently stable on current antihypertensive regimen. (7) DVT prophylaxis Current Visit: Yes Status: Acute Assessment and plan: Subcutaneous heparin every 8 hours - Subjective Interval history: Mr. Bach 82-year-old male admitted with CHF exacerbation and CAP has been seen and evaluated patient bedside this morning. He is without complaint denies any fevers, chills, sweating or productive cough. He denies any chest pain or chest pressure pain in his jaw or arm. I discussed his current clinical findings and he still continues to turn down left heart catheterization. He denies any other concerns at this time except that he does not have his false teeth. He is open to talking with nephrology regarding his current renal state. - Constitutional Vitals: Temp Pulse Resp BP Pulse Ox 98.4 F 87 20 149/92 95 01/22/17 07:18 01/22/17 07:18 01/22/17 07:48 01/22/17 07:18 01/22/17 07:48 General appearance: Present: mild distress, A&O X 3, pleasant, obese, answers questions appropriately Exam: General: Patient alert, awake, oriented 3, interactive, in no acute distress HEENT: Normocephalic, atraumatic, pupils equal reactive to light, nasal cavity patent and open septum median position, oral mucosa moist, uvula midline, neck supple trachea midline no palpable lymphadenopathy, no thyromegaly. Chest: Symmetric bilateral correlating with respiratory effort, non-labored respiratory effort Cardiac: Regular rate and rhythm, positive S1, S2, no bruits appreciated bilateral carotids, Radial pulses 2+ bilateral, posterior tibial and dorsal pedal pulses 2+ bilateral. Respiratory: Rhonchi appreciated in the bilateral lung bases. All the lung hernández are clear to auscultation. Abdomen: Soft, nontender, positive bowel sounds, no palpable masses appreciated on examination, patient has pitting edema up to his mid back. Extremities: Symmetric bilateral, bilateral 2+ lower extremity edema with chronic venous stasis changes on the bilateral shins. patient moving all 4 extremities spontaneously. Neurologic: No focal deficits appreciated on examination. Face symmetric, muscle strength symmetric bilateral upper and lower extremities. Skin: Anasarca, clinical findings of fluid overload Internal Medicine: Result - Labs CBC & Chem 7: 01/22/17 04:38 01/22/17 04:38 Labs: Short CBC 01/22/17 Range/Units 04:38 WBC 9.1 (4.3-11.1) K/mcL Hgb 10.1 L (12.9-16.9) g/dL Hct 31.9 L (37.5-50.1) % Plt Count 234 (140-400) K/mcL Neutrophils # 5.8 (1.6-8.9) K/mcL BMP 01/21/17 01/22/17 14:19 04:38 Sodium 140 Potassium 5.0 H D 4.6 H Chloride 106 Carbon Dioxide 24 BUN 34 H Creatinine 2.62 H Glucose 155 H Calcium 10.0 Cardiac Enzymes 01/21/17 01/21/17 Range/Units 14:19 19:43 Troponin I 0.52 H* 0.57 H* (0-0.03) ng/mL Liver Function 01/22/17 Range/Units 04:38 Total Bilirubin 0.6 (0.2-1.2) mg/dL AST 16 (5-34) Units/L ALT 7 (0-55) Units/L Alkaline Phosphatase 94 (38-126) Units/L Albumin 2.8 L (3.5-5.0) g/dL Urine 01/22/17 Range/Units 04:10 Urine Color Yellow (Yellow) Urine Clarity Clear (Clear) Urine pH 7.0 (5.0-8.0) pH Units Ur Specific [place] 1.010 (1.010-1.025) Urine Protein 30 H (Neg-Trace) mg/dL Urine Glucose (UA) Normal (Normal) mg/dL - ABG Interpretation ABG results: ABG ABG pH 7.38 pH Units (7.32-7.45) 01/21/17 06:50 ABG pCO2 43 mmHg (35-45) 01/21/17 06:50 ABG pO2 80 mmHg (85-104) L 01/21/17 06:50 ABG O2 Saturation 95 % (95-98) 01/21/17 06:50 PT/INR, D-dimer PT 13.8 Seconds (9.4-12.1) H 01/21/17 02:44 Consult Discharge Plan - Plan Referrals: Kimo Bhatti MD [Primary Care Provider] - 02/01/17 10:15 am <Fito Soto P - Last Filed: 01/22/17 12:27> Date of Encounter: 01/22/17 - Constitutional Vitals: Temp Pulse Resp BP Pulse Ox 98.4 F 87 16 140/79 94 01/22/17 11:09 01/22/17 11:09 01/22/17 11:09 01/22/17 11:09 01/22/17 11:09 Internal Medicine: Result - Labs CBC & Chem 7: 01/22/17 04:38 01/22/17 04:38 Labs: Short CBC 01/22/17 Range/Units 04:38 WBC 9.1 (4.3-11.1) K/mcL Hgb 10.1 L (12.9-16.9) g/dL Hct 31.9 L (37.5-50.1) % Plt Count 234 (140-400) K/mcL Neutrophils # 5.8 (1.6-8.9) K/mcL BMP 01/21/17 01/22/17 14:19 04:38 Sodium 140 Potassium 5.0 H D 4.6 H Chloride 106 Carbon Dioxide 24 BUN 34 H Creatinine 2.62 H Glucose 155 H Calcium 10.0 Cardiac Enzymes 01/21/17 01/21/17 Range/Units 14:19 19:43 Troponin I 0.52 H* 0.57 H* (0-0.03) ng/mL Liver Function 01/22/17 Range/Units 04:38 Total Bilirubin 0.6 (0.2-1.2) mg/dL AST 16 (5-34) Units/L ALT 7 (0-55) Units/L Alkaline Phosphatase 94 (38-126) Units/L Albumin 2.8 L (3.5-5.0) g/dL Urine 01/22/17 Range/Units 04:10 Urine Color Yellow (Yellow) Urine Clarity Clear (Clear) Urine pH 7.0 (5.0-8.0) pH Units Ur Specific [place] 1.010 (1.010-1.025) Urine Protein 30 H (Neg-Trace) mg/dL Urine Glucose (UA) Normal (Normal) mg/dL - ABG Interpretation ABG results: ABG ABG pH 7.38 pH Units (7.32-7.45) 01/21/17 06:50 ABG pCO2 43 mmHg (35-45) 01/21/17 06:50 ABG pO2 80 mmHg (85-104) L 01/21/17 06:50 ABG O2 Saturation 95 % (95-98) 01/21/17 06:50 PT/INR, D-dimer PT 13.8 Seconds (9.4-12.1) H 01/21/17 02:44 - Attending Attestation I examined this patient and my medical decision-making was reviewed with the CONCRETE INSPECTOR/PA/Advanced Practice Nurse/Resident Physician. I agree with the documented findings, disposition and treatment plan as described except to the extent set forth below. renal input appreciated.
[2017-01-22] MEDS: Aspirin 81 MG TAB.CHEW PO SCH (08:53)
[2017-01-22] MEDS: Isosorbide MONOnitrate (24 HR) 30 MG TAB.ER.24H PO SCH (08:53)
[2017-01-22] MEDS: Metoprolol XL (24 HR) Succ 25 MG TAB.ER.24H PO SCH ×2 (08:53→20:43)
[2017-01-22] MEDS: Insulin LISPRO 300 UNITS/3 ML VIAL SQ SCH ×4 (08:55→20:52)
[2017-01-22] MEDS: Furosemide 40 MG/4 ML VIAL IVP SCH (09:01)
--- NOTE | 2017-01-22 13:36 | Nephrology Consult Note ---
Date of Encounter: 01/22/17 Time of Encounter: 13:34 Assessment and Plan (1) Chronic kidney disease, stage IV (severe) Current Visit: Yes Status: Acute (2) Type 2 diabetes mellitus with diabetic chronic kidney disease Current Visit: Yes Status: Acute (3) Nocturia Current Visit: Yes Status: Acute (4) Systolic CHF, acute Current Visit: Yes Status: Acute History of Present Illness - History of Present Illness This is an 82-year-old male who was admitted with worsening systolic congestive heart failure. Patient has been experiencing shortness of breath or orthopnea and lower extremity swelling. Echocardiogram showed an EF of 35%. Patient presented with an elevated creatinine of 2.3. Current creatinine is 2.62 with a GFR of 24. Patient reports a history of chronic kidney disease for several years. His creatinine and GFR have been at about the same range since at least 2014 if not earlier. Patient says his kidney function normally ranges around 26 %. He said at one point his kidney function was down to 13% and he was told he would have to go on dialysis. His renal function improved. He was seeing a kidney doctor at that time and then decided not to return for any future visits. Patient reports a history of diabetes and hypertension for 20-30 years. He denies a history of diabetic retinopathy. He denies hematuria proteinuria or recurrent urinary tract infections. He does not take nonsteroidal anti- inflammatory agents. He says he does have difficulty emptying his bladder and has nocturia about every 1 hour during the night. He currently has a Carcamo catheter in place. He has a remote history of a renal stone episode about 30 years ago. Past Med Surg Social Fam HX - Past Medical History Medical history: arthritis, coronary artery disease, CVA, diabetes, GERD, hyperlipidemia, hypertension, myocardial infarction, renal disease, other (SLOANE) Psychiatric history: no psych history - Past Surgical History Surgical History: angioplasty/stent (2014), orthopedic, other, other (loop recorder) - Social History Smoking Status: Never smoker Alcohol use: none Drug use: none Medications and Allergies Acetaminophen [Tylenol] 650 mg PO Q6HR PRN 01/21/17 [History] Allopurinol [Zyloprim 100 MG] 100 mg PO DAILY 01/21/17 [History] Aspirin 81 mg PO DAILY 01/21/17 [History] Atenolol [Tenormin] 50 mg PO DAILY 01/21/17 [History] Citalopram [CeleXA] 20 mg PO DAILY 01/21/17 [History] Clopidogrel [Plavix] 75 mg PO DAILY 01/21/17 [History] Clotrimazole 1% CRM [Lotrimin 1%] 1 appl TP BID 01/21/17 [History] Fexofenadine HCl [Allergy Relief] 180 mg PO DAILY PRN 01/21/17 [History] Furosemide [Lasix] 40 mg PO DAILY 01/21/17 [History] Insulin Glargine,Hum.rec.anlog [Lantus Solostar] 15 unit SQ HS 01/21/17 [History ] Magnesium Oxide [Mgo] 400 mg PO DAILY 01/21/17 [History] Melatonin 5 mg PO HS 01/21/17 [History] NIFEdipine [Nifedipine ER] 60 mg PO DAILY 01/21/17 [History] Nitroglycerin [Nitrostat] 0.4 mg SL AD PRN 01/21/17 [History] Oxycodone HCl/Acetaminophen [Percocet 5-325 mg Tablet] 1 tab PO TID PRN [History] Pantoprazole Sodium [Protonix] 40 mg PO DAILY 01/21/17 [History] Allergies Foofnhr-Xyv-Qgn Reductase Inhibitor [Statins] Allergy (Verified 12/22/15 07:54) See Comments Review of Systems Constitutional: as per HPI, weight gain Eyes: bilateral: blurred vision (patient denies), diplopia (patient denies) Nose, mouth and throat: no dizziness, no headache(s) Cardiovascular: dyspnea, dyspnea on exertion, leg edema, orthopnea Respiratory: dyspnea, dyspnea on exertion Gastrointestinal: no abdominal pain, no change in bowel habits Genitourinary Male: difficulty urinating, urinary urgency Musculoskeletal: no muscle weakness, no numbness Integumentary: no hirsutism, no striae Neurological: as per HPI Psychiatric: no depression, no difficulty concentrating Endocrine: as per HPI Exam - Vital Signs Vital signs: Initial Vital Signs Temp Pulse Resp BP Pulse Ox 98.2 F 92 26 0/0 97 01/21/17 02:03 01/21/17 02:03 01/21/17 02:03 01/21/17 02:03 01/21/17 02:03 Vital Signs - Last 8 Hours Temp Pulse Resp BP Pulse Ox 01/22/17 11:09 98.4 F 87 16 140/79 94 01/22/17 10:44 18 92 01/22/17 07:48 20 95 01/22/17 07:18 98.4 F 87 20 149/92 93 Intake and Output 01/21/17 01/22/17 01/22/17 23:59 07:59 15:59 Intake Total 240 / 240 100 / 100 360 / 360 Output Total 1900 / 1900 1100 / 1100 1220 / 1220 Balance -1660 / -1660 -1000 / -1000 -860 / -860 Intake: Oral 240 / 240 100 / 100 360 / 360 Output: Urine 300 / 300 720 / 720 2-way Urethral 300 / 300 Catheter 1600 / 1600 1100 / 1100 500 / 500 Other: Meal Dinner Breakfast Percent of Meal Consumed 30% 50% Stool Size Small Stool Consistency liquid Stool Color Brown # Bowel Movements 1 Weight 99.2 kg 99.2 kg Blood Glucose* 180 183 148 Patient Weight 01/22/17 23:59 Weight 99.2 kg - General Appearance Exam: The patient is alert and oriented. He is in no acute distress. Neck is supple. Lungs diminished breath sounds otherwise clear. Heart regular rate and rhythm with some ectopy noted. Abdomen shows normal bowel sounds bruits masses organomegaly or tenderness. Lower extremities show 3+ lower extremity swelling. Carcamo catheter is in place draining light colored urine. Results - Lab Results 01/22/17 04:38 01/22/17 04:38 Most recent lab results ABG pH 7.38 pH Units (7.32-7.45) 01/21/17 06:50 ABG pCO2 43 mmHg (35-45) 01/21/17 06:50 ABG pO2 80 mmHg (85-104) L 01/21/17 06:50 ABG HCO3 25.4 mEQ/L (21-27) 01/21/17 06:50 ABG O2 Saturation 95 % (95-98) 01/21/17 06:50 Calcium 10.0 mg/dL (8.6-10.8) 01/22/17 04:38 Magnesium 1.8 mg/dL (1.6-2.6) 01/21/17 02:44 Consult Discharge Plan - Plan Referrals: Kimo Bhatti MD [Primary Care Provider] - 02/01/17 10:15 am
[2017-01-23] MEDS: Ipratropium/Albuterol Neb 3 ML IH SCH ×7 (00:24→23:56)
[2017-01-23] MEDS: Azithromycin 500 MG in D5% in Water 250 ML IVPB SCH (06:16)
[2017-01-23] MEDS: *HR* Heparin 5,000 UNIT/ML VIAL SQ SCH ×2 (06:17→16:53)
[2017-01-23 06:36] LABS: Basophils % 0.2 %; Eosinophils # 0.2 K/mcL (0.0-0.6); Eosinophils % 2.9 %; Hematocrit 28.8 % (37.5-50.1); Hemoglobin 9.2 g/dL (12.9-16.9); Immature Granulocytes % 0.6 % (0-4); Lymphocytes # 1.8 K/mcL (0.6-4.6); Lymphocytes % 27.5 %; Mean Corpuscular HGB Conc 31.9 g/dL (31.6-35.5); Mean Corpuscular Hemoglobin 26.2 pg (28.0-33.3); Mean Corpuscular Volume 82.1 fL (83.0-100.0); Mean Platelet Volume 9.3 fL (9.4-12.4); Monocytes # 0.7 K/mcL (0.0-1.3); Neutrophils # 3.9 K/mcL (1.6-8.9); Nucleated Red Blood Cells 0.3 /100 WBC (0); Platelet Count 204 K/mcL (140-400); Red Blood Count 3.51 M/mcL (4.19-5.50); Red Cell Distribution Width 15.1 % (11.5-14.5); Segmented Neutrophils % 57.8 %
[2017-01-23 06:46] LABS: Albumin 2.5 g/dL (3.5-5.0); Albumin/Globulin Ratio 0.8 (1.1-2.2); Bilirubin,Total 0.5 mg/dL (0.2-1.2); Calcium 9.3 mg/dL (8.6-10.8); Globulin 3.3 g/dL (2.4-3.5); Potassium 4.1 mEq/L (3.5-4.5); Total Protein 5.8 g/dL (6.0-8.3)
[2017-01-23] MEDS: Metoprolol XL (24 HR) Succ 25 MG TAB.ER.24H PO SCH ×2 (07:42→20:50)
[2017-01-23] MEDS: Furosemide 40 MG/4 ML VIAL IVP SCH (07:42)
[2017-01-23] MEDS: Isosorbide MONOnitrate (24 HR) 30 MG TAB.ER.24H PO SCH (07:42)
[2017-01-23] MEDS: Aspirin 81 MG TAB.CHEW PO SCH (07:42)
[2017-01-23] MEDS: Insulin LISPRO 300 UNITS/3 ML VIAL SQ SCH ×4 (07:43→20:20)
--- NOTE | 2017-01-23 09:48 | Cardiology Progress Note ---
Date of Encounter: 01/23/17 Time of Encounter: 09:46 Assessment and Plan (1) CHF exacerbation Current Visit: Yes Status: Acute Acute sytolic CHF. Presented with 2 week history of worsening shortness of breath and edema, and 10 lb weight gain. Last TTE 03/17/16 ([facility] records) demonstrated preserved LVEF, 55-60% with diastolic dysfunction. TTE this admission shows EF 35% with segmental systolic dysfunction. Mild LVH. RV normal in size and function. BNP 1132, CXR demonstrated bibasilar atelectasis or consolidation with moderate cardiomegaly. Negative 2030 ML for 24 hours. Diuresing well with lower dose of lasix. Creatinine improved. Recommend continuing diuresis until near baseline, at least another 24 hours. Nephrology was consulted. Patient reported to have declined nephrology evaluation in the past. Continue strict I&O's, daily weights, Na/fluid restriction diet. Continue beta-adeel. ARB held d/t hyperkalemia and A/CKD. Potassium up to 6.2 and now 4.1. Close out-pt f/u with patients transportation sales consultant Dr. Rivas. Cardiology will sign off. Please call with questions. Qualifiers: Congestive heart failure type: unspecified congestive heart failure type Qualified Code(s): I50.9 - Heart failure, unspecified (2) Elevated troponin Current Visit: Yes Status: Acute Mild troponin elevation, 0.04, 0.20, 0.52, 0.57 in the setting of CHF with reduced EF, possible CAP, CKD IV. Likely demand ischemia rather than ACS. EF 35% with segmental systolic dysfunction. He denies chest pain or discomfort. Mild lateral ST depression noted per ECG compared to previous ECG dated 2009. Follows with Cardiology at [facility], Dr. Rivas. Known CAD s/p PCI (2013). Continue asa, plavix, and betablocker. Statin listed as allergy, pt. states causes muscle weakness. Long-acting nitrate added. Denies chest pain. [facility] indications, benefits, risks, and alternatives discussed and he declines d/ t concern for worsening renal function. He prefers conservative management. Recommend close outpatient follow-up with Dr. Rivas, Swe[employer] Operator at [place]. Discussion w patient/family: The assessment and plan as outlined above was discussed with the patient and/or family members who expressed understanding and agreement. All questions were answered. Thank you for involving us in the care of your patient. Please call with any questions. Subjective Principal diagnosis: elevated troponin, demand ischemia in the setting of CHF Interval history: Denies chest pain. SOB and BLE edema improved. Objective Vital Signs, Last 4 Hours Temp Pulse Resp BP Pulse Ox 01/23/17 07:50 16 95 01/23/17 06:52 98.3 F 82 18 151/82 94 General: Conversant, No Apparent Distress HEENT: Atraumatic, Normocephaly, Mucus Membranes Moist Neck: No JVD, Normal carotid pulses Cardiac: Reg Rate and Rhythm, Normal S1 and S2, No Murmur Lungs: Normal Breath Sounds, No Wheeze, Rales, Rhonchi, Other (diminished bases , o2 turned down to 2L today. ) Neuro: Alert and responsive, No focal deficits noted Abdomen: Soft, Non-Tender Skin: No rashes noted on visualized skin Musculoskeletal: No Chest Wall Tenderness Extremities: No Clubbing, No Cyanosis, Normal Pulses, Other (2+ edema up to knees and 1+ up to his thighs. BLE edema improved. ) Results 01/23/17 06:14 01/23/17 06:14 Lab Results 01/23/17 01/23/17 06:14 06:14 WBC 6.7 Hgb 9.2 L Hct 28.8 L Plt Count 204 Sodium 138 Potassium 4.1 Chloride 103 Carbon Dioxide 27 BUN 32 H Creatinine 2.59 H Glucose 147 H Calcium 9.3 Total Bilirubin 0.5 AST 17 ALT 7 Alkaline Phosphatase 76 Consult Discharge Plan - Plan Referrals: Kimo Bhatti MD [Primary Care Provider] - 02/01/17 10:15 am
--- NOTE | 2017-01-23 11:50 | Internal Med Progress Note ---
<Rick iQu - Last Filed: 01/23/17 11:48> Date of Encounter: 01/23/17 Time of Encounter: 09:00 - Assessment and plan (1) Systolic CHF, acute Current Visit: Yes Status: Acute Assessment and plan: Patient presents with clinical findings of acute fluid overload and systolic heart failure. Patient has TTE shows decreased LVEF of 35% with regional wall motion abnormalities suggestive of ischemic cardiomyopathy.Last TTE 03/17/16 ( [facility]) demonstrated preserved LVEF, 55-60% with diastolic dysfunction. BNP of 1132, diffuse rhonchi appreciated upon auscultation, diffuse 2+ pitting edema. 01/22/2017: Patient is in stable condition and asymptomatic. Continues to refuse left heart catheterization. Current fluid balance is -5895 ml, patient weight dropped by 2 kg. 01/23/2017 patient has been seen and evaluated and peers to be much improved after continued IV diuresis. He continues to refuse left heart catheterization despite discussion regarding the benefits. Current fluid balance -6 L. Chronic kidney disease has stayed stable with IV diuresis. Plan: - Continue maximizing cardiac coverage - Cardiology consulted and involved in patient care - We will reduce Lasix to 40 mg IV once a day with current renal function - Strict daily weights, intake and output measurements - Strict 2 L fluid restriction and 2 g sodium restriction (2) Hyperkalemia, diminished renal excretion Current Visit: Yes Status: Acute Assessment and plan: Patient was admitted with hyperkalemia in the setting of CPAP and NSTEMI. This is in the setting of stage III renal failure. Outpatient records demonstrated a chronic elevation in his potassium around 5.5 for the last year. This is likely secondary to his poor renal function - Resolved. (3) Elevated troponin Current Visit: Yes Status: Acute Assessment and plan: Troponins elevation from 0.04-0.20- 0.52. Patient is without chest pain, new echo demonstrates reduced ejection fraction and clinical findings demonstrate acute systolic heart failure exacerbation. - Patient has been seen by cardiology, Offered Cath but he has chosen medical management at this time. - Echocardiogram as mentioned above demonstrating ischemic cardiomyopathy with a reduced ejection fraction - Patient has refused left heart catheterization and intervention. Optimized Medical management at this time. (4) CAD (coronary artery disease) Current Visit: Yes Status: Chronic Assessment and plan: Known history of coronary artery disease, patient has an allergy to statin, this was discussed with cardiology and he is on a long-acting nitrate now. Qualifiers: Coronary Disease-Associated Artery/Lesion type: unspecified vessel or lesion type [place] vs. transplanted heart: [place] heart Associated angina: without angina Qualified Code(s): I25.10 - Atherosclerotic heart disease of [place] coronary artery without angina pectoris (5) CKD (chronic kidney disease) stage 3, GFR 30-59 ml/min Current Visit: Yes Status: Chronic Assessment and plan: Known history of stage III chronic kidney disease with an average creatinine of 2.35. He also was found have an elevated potassium which is been elevated for roughly a year. - Dr. Bauer has seen and evaluated the patient, recommendations appreciated. Plan: - Continue IV Lasix 40 mg once daily - Renally dose antibiotics and avoid nephrotoxic medications - Monitor renal function daily (6) Hypertension Current Visit: Yes Status: Chronic Assessment and plan: Currently stable on current antihypertensive regimen. Qualifiers: Hypertension type: essential hypertension Qualified Code(s): I10 - Essential (primary) hypertension (7) DVT prophylaxis Current Visit: Yes Status: Acute Assessment and plan: Subcutaneous heparin every 8 hours - Subjective Interval history: Mr. Bach 82-year-old male admitted with CHF exacerbation and CAP has been seen and evaluated patient bedside this morning. He is without complaint denies any fevers, chills, sweating or productive cough. He denies any chest pain or chest pressure pain in his jaw or arm. He feels that his edema has improved since being on the diuresis and is an upbeat mood today. He has no other concerns at this time. He denies any other needs. - Constitutional Vitals: Temp Pulse Resp BP Pulse Ox 98.2 F 79 18 131/72 94 01/23/17 10:56 01/23/17 10:56 01/23/17 10:56 01/23/17 10:56 01/23/17 10:56 General appearance: Present: mild distress, A&O X 3, pleasant, obese, answers questions appropriately Exam: General: Patient alert, awake, oriented 3, interactive, in no acute distress HEENT: Normocephalic, atraumatic, pupils equal reactive to light, nasal cavity patent and open septum median position, oral mucosa moist, uvula midline, neck supple trachea midline no palpable lymphadenopathy, no thyromegaly. Chest: Symmetric bilateral correlating with respiratory effort, non-labored respiratory effort Cardiac: Regular rate and rhythm, positive S1, S2, no bruits appreciated bilateral carotids, Radial pulses 2+ bilateral, posterior tibial and dorsal pedal pulses 2+ bilateral. Respiratory: Rhonchi appreciated in the bilateral lung bases. All the lung hernández are clear to auscultation. Abdomen: Soft, nontender, positive bowel sounds, no palpable masses appreciated on examination Extremities: Symmetric bilateral, bilateral trace lower extremity edema with chronic venous stasis changes on the bilateral shins. patient moving all 4 extremities spontaneously. Neurologic: No focal deficits appreciated on examination. Face symmetric, muscle strength symmetric bilateral upper and lower extremities. Internal Medicine: Result - Labs CBC & Chem 7: 01/23/17 06:14 01/23/17 06:14 Labs: Short CBC 01/23/17 Range/Units 06:14 WBC 6.7 (4.3-11.1) K/mcL Hgb 9.2 L (12.9-16.9) g/dL Hct 28.8 L (37.5-50.1) % Plt Count 204 (140-400) K/mcL Neutrophils # 3.9 (1.6-8.9) K/mcL BMP 01/23/17 06:14 Sodium 138 Potassium 4.1 Chloride 103 Carbon Dioxide 27 BUN 32 H Creatinine 2.59 H Glucose 147 H Calcium 9.3 Liver Function 01/23/17 Range/Units 06:14 Total Bilirubin 0.5 (0.2-1.2) mg/dL AST 17 (5-34) Units/L ALT 7 (0-55) Units/L Alkaline Phosphatase 76 (38-126) Units/L Albumin 2.5 L (3.5-5.0) g/dL - ABG Interpretation ABG results: ABG ABG pH 7.38 pH Units (7.32-7.45) 01/21/17 06:50 ABG pCO2 43 mmHg (35-45) 01/21/17 06:50 ABG pO2 80 mmHg (85-104) L 01/21/17 06:50 ABG O2 Saturation 95 % (95-98) 01/21/17 06:50 PT/INR, D-dimer PT 13.8 Seconds (9.4-12.1) H 01/21/17 02:44 Consult Discharge Plan - Plan Referrals: Kimo Bhatti MD [Primary Care Provider] - 02/01/17 10:15 am <Fito Soto P - Last Filed: 01/23/17 17:11> Date of Encounter: 01/23/17 - Constitutional Vitals: Temp Pulse Resp BP Pulse Ox 97.9 F 76 16 133/73 97 01/23/17 15:22 01/23/17 15:22 01/23/17 16:29 01/23/17 15:22 01/23/17 16:29 Internal Medicine: Result - Labs CBC & Chem 7: 01/23/17 06:14 01/23/17 13:43 Labs: Short CBC 01/23/17 Range/Units 06:14 WBC 6.7 (4.3-11.1) K/mcL Hgb 9.2 L (12.9-16.9) g/dL Hct 28.8 L (37.5-50.1) % Plt Count 204 (140-400) K/mcL Neutrophils # 3.9 (1.6-8.9) K/mcL BMP 01/23/17 01/23/17 06:14 13:43 Sodium 138 137 Potassium 4.1 4.0 Chloride 103 99 Carbon Dioxide 27 28 BUN 32 H 33 H Creatinine 2.59 H 2.76 H Glucose 147 H 160 H Calcium 9.3 10.0 Liver Function 01/23/17 01/23/17 Range/Units 06:14 13:43 Total Bilirubin 0.5 (0.2-1.2) mg/dL AST 17 (5-34) Units/L ALT 7 (0-55) Units/L Alkaline Phosphatase 76 (38-126) Units/L Albumin 2.5 L 3.0 L (3.5-5.0) g/dL - ABG Interpretation ABG results: ABG ABG pH 7.38 pH Units (7.32-7.45) 01/21/17 06:50 ABG pCO2 43 mmHg (35-45) 01/21/17 06:50 ABG pO2 80 mmHg (85-104) L 01/21/17 06:50 ABG O2 Saturation 95 % (95-98) 01/21/17 06:50 PT/INR, D-dimer PT 13.8 Seconds (9.4-12.1) H 01/21/17 02:44 - Attending Attestation I examined this patient and my medical decision-making was reviewed with the INGOT CAR OPERATOR/PA/Advanced Practice Nurse/Resident Physician. I agree with the documented findings, disposition and treatment plan as described except to the extent set forth below.
--- NOTE | 2017-01-23 13:16 | Nephrology Progress Note ---
Date of Encounter: 01/23/17 Time of Encounter: 12:55 - Assessment and Plan (1) CKD (chronic kidney disease) stage 4, GFR 15-29 ml/min Current Visit: Yes Status: Acute Stable CKD 4, baseline 2.5-2.6. Renal workup in progress. Systolic CHF, LE edema improving Subjective Principal diagnosis: elevated troponin, demand ischemia in the setting of CHF Interval history: Sitting up in chair, at bedside. Objective - Vital Signs Vital signs: Vital Signs Temp Pulse Resp BP Pulse Ox 01/23/17 10:56 98.2 F 79 18 131/72 94 01/23/17 10:49 14 94 01/23/17 07:50 16 95 01/23/17 06:52 98.3 F 82 18 151/82 94 01/23/17 04:02 16 92 01/23/17 03:00 97.9 F 83 18 151/78 94 01/23/17 00:25 16 98 01/23/17 00:00 98.1 F 82 16 161/82 96 01/22/17 20:28 16 96 01/22/17 20:00 71 18 147/82 96 01/22/17 16:41 15 94 01/22/17 15:02 98.4 F 80 15 143/84 94 Intake and Output 01/22/17 01/23/17 01/23/17 23:59 07:59 15:59 Intake Total 1160 / 1160 700 / 700 240 / 240 Output Total 1000 / 1000 900 / 900 675 / 675 Balance 160 / 160 -200 / -200 -435 / -435 Intake: Oral 1160 / 1160 700 / 700 240 / 240 Output: Catheter 1000 / 1000 900 / 900 675 / 675 Other: Meal Dinner Breakfast Percent of Meal Consumed 100% 100% Stool Size Large Stool Consistency formed Stool Color Brown Weight 94 kg 94 kg Blood Glucose* 206 179 225 Patient Weight 01/23/17 23:59 Weight 94 kg - General Appearance General appearance: Present: well-developed, well-nourished, appears started age EENT: Present: mucous membranes moist Neck: Present: no JVD Respiratory: Present: clear Cardiology: Present: edema, regular rate, regular rhythm Additional Comments: 1-2+ LE pitting edema Gastrointestinal: Present: normoactive bowel sounds, no tenderness Integumentary: Present: warm and dry Neurologic: Present: alert and oriented x3 Psychiatric: Present: mood/affect appropriate, cooperative - Lab 01/23/17 06:14 01/23/17 06:14 Most recent lab results ABG pH 7.38 pH Units (7.32-7.45) 01/21/17 06:50 ABG pCO2 43 mmHg (35-45) 01/21/17 06:50 ABG pO2 80 mmHg (85-104) L 01/21/17 06:50 ABG HCO3 25.4 mEQ/L (21-27) 01/21/17 06:50 ABG O2 Saturation 95 % (95-98) 01/21/17 06:50 Calcium 9.3 mg/dL (8.6-10.8) 01/23/17 06:14 Magnesium 1.8 mg/dL (1.6-2.6) 01/21/17 02:44 Consult Discharge Plan - Plan Referrals: Kimo Bhatti MD [Primary Care Provider] - 02/01/17 10:15 am
[2017-01-23 14:31] LABS: % Iron Saturation 11 % (20-55); Iron 29 mcg/dL (65-175); Transferrin 184 mg/dL (174-364)
[2017-01-23 15:00] LABS: Phosphorous 3.1 mg/dL (2.3-4.7); Uric Acid 6.1 mg/dL (3.5-7.2)
[2017-01-23 23:26] LABS: Creatinine,Urine 25 mg/dL; Microalbum/Creatinine Ratio,Ur 1168 (0-30); Microalbumin,Urine 292 mg/L
[2017-01-24] MEDS ORDERED: Vicks Vaporub Oint 50 GM PACKAGE TP PRN (02:05)
[2017-01-24] MEDS: Ipratropium/Albuterol Neb 3 ML IH SCH ×6 (03:43→23:08)
[2017-01-24] MEDS: *HR* Heparin 5,000 UNIT/ML VIAL SQ SCH ×2 (06:13→16:05)
[2017-01-24 06:24] LABS: Basophils % 0.4 %; Eosinophils # 0.2 K/mcL (0.0-0.6); Eosinophils % 3.1 %; Hematocrit 30.1 % (37.5-50.1); Hemoglobin 9.4 g/dL (12.9-16.9); Immature Granulocytes % 0.5 % (0-4); Lymphocytes # 1.6 K/mcL (0.6-4.6); Lymphocytes % 21.1 %; Mean Corpuscular HGB Conc 31.2 g/dL (31.6-35.5); Mean Corpuscular Hemoglobin 25.3 pg (28.0-33.3); Mean Corpuscular Volume 81.1 fL (83.0-100.0); Mean Platelet Volume 9.1 fL (9.4-12.4); Monocytes # 0.9 K/mcL (0.0-1.3); Monocytes % 11.7 %; Neutrophils # 4.7 K/mcL (1.6-8.9); Platelet Count 211 K/mcL (140-400); Red Blood Count 3.71 M/mcL (4.19-5.50); Red Cell Distribution Width 15.2 % (11.5-14.5); Segmented Neutrophils % 63.2 %
[2017-01-24 06:38] LABS: Albumin 2.5 g/dL (3.5-5.0); Albumin/Globulin Ratio 0.7 (1.1-2.2); Bilirubin,Total 0.5 mg/dL (0.2-1.2); Calcium 9.1 mg/dL (8.6-10.8); Globulin 3.4 g/dL (2.4-3.5); Potassium 4.1 mEq/L (3.5-4.5); Total Protein 5.9 g/dL (6.0-8.3)
[2017-01-24] MEDS: Isosorbide MONOnitrate (24 HR) 30 MG TAB.ER.24H PO SCH (08:22)
[2017-01-24] MEDS: Furosemide 40 MG/4 ML VIAL IVP SCH (08:22)
[2017-01-24] MEDS: Aspirin 81 MG TAB.CHEW PO SCH (08:22)
[2017-01-24] MEDS: Azithromycin 250 MG TABLET PO SCH (08:22)
[2017-01-24] MEDS: Metoprolol XL (24 HR) Succ 25 MG TAB.ER.24H PO SCH ×2 (08:22→20:27)
[2017-01-24] MEDS: Insulin LISPRO 300 UNITS/3 ML VIAL SQ SCH ×4 (08:23→21:49)
--- NOTE | 2017-01-24 09:09 | Nephrology Progress Note ---
Date of Encounter: 01/24/17 Time of Encounter: 08:50 - Assessment and Plan (1) CKD (chronic kidney disease) stage 4, GFR 15-29 ml/min Current Visit: Yes Status: Acute Stable CKD 4, baseline 2.5-2.6. Creat 2.43. Renal workup in progress. Renal US, no obstructive uropathy, multiple renal cysts. Discussed with patient elevated PTH. He is choosing not to be treated for this at this time, so will not order Calcitriol. His Tsat is 11. Patient agreed to Fereheme infusion x 2. This could be outpatient. Notified our office staff to follow through to see if given inpatient or schedule outpatient. Patient agrees to follow with us in office in two months with labs. Urine output 3425 cc. Systolic CHF, LE edema improving Subjective Principal diagnosis: elevated troponin, demand ischemia in the setting of CHF Interval history: Sitting on edge of bred, eating breakfast. Discussed with patient elevated PTH. He is choosing not to be treated for this at this time, so will not order Calcitriol. His Tsat is 11. Patient agreed to Fereheme infusion x 2. Objective - Vital Signs Vital signs: Vital Signs Temp Pulse Resp BP Pulse Ox 01/24/17 07:38 18 92 01/24/17 06:28 98.8 F 87 18 156/86 94 01/24/17 04:02 94 01/24/17 03:44 20 95 01/24/17 02:54 98.8 F 98 16 144/60 93 01/23/17 23:56 16 93 01/23/17 22:48 98.6 F 89 16 159/84 94 01/23/17 20:00 98.5 F 87 16 127/88 94 01/23/17 19:57 16 92 01/23/17 16:29 16 97 01/23/17 16:15 16 97 01/23/17 15:22 97.9 F 76 18 133/73 96 01/23/17 10:56 98.2 F 79 18 131/72 94 01/23/17 10:49 14 94 Intake and Output 01/23/17 01/24/17 01/24/17 23:59 07:59 15:59 Intake Total 1600 / 1600 0 / 0 Output Total 1150 / 1150 1325 / 1325 Balance 450 / 450 -1325 / -1325 Intake: Oral 1600 / 1600 0 / 0 Output: Catheter 1150 / 1150 1325 / 1325 Other: Meal Dinner Percent of Meal Consumed 95% Stool Size Large Small Stool Consistency soft soft Stool Characteristics Tarry Tarry Stool Color Brown Brown # Bowel Movements 1 3 # Bowel Movement Diapers 2 Weight 92.9 kg Blood Glucose* 161 194 Patient Weight 01/24/17 23:59 Weight 92.9 kg - General Appearance General appearance: Present: well-developed, well-nourished, appears started age EENT: Present: mucous membranes moist Neck: Present: no JVD Respiratory: Present: clear Cardiology: Present: edema, regular rate, regular rhythm Gastrointestinal: Present: normoactive bowel sounds, no tenderness Neurologic: Present: alert and oriented x3 Psychiatric: Present: mood/affect appropriate, cooperative - Lab 01/24/17 06:06 01/24/17 06:06 Most recent lab results ABG pH 7.38 pH Units (7.32-7.45) 01/21/17 06:50 ABG pCO2 43 mmHg (35-45) 01/21/17 06:50 ABG pO2 80 mmHg (85-104) L 01/21/17 06:50 ABG HCO3 25.4 mEQ/L (21-27) 01/21/17 06:50 ABG O2 Saturation 95 % (95-98) 01/21/17 06:50 Calcium 9.1 mg/dL (8.6-10.8) 01/24/17 06:06 Phosphorus 3.1 mg/dL (2.3-4.7) 01/23/17 13:43 Magnesium 1.8 mg/dL (1.6-2.6) 01/21/17 02:44 Urine Creatinine 25 mg/dL 01/23/17 22:00 Consult Discharge Plan - Plan Referrals: Kimo Bhatti MD [Primary Care Provider] - 02/01/17 10:15 am
--- NOTE | 2017-01-24 14:50 | Internal Med Progress Note ---
<EraNimesh galdamez - Last Filed: 01/24/17 14:48> Date of Encounter: 01/24/17 Time of Encounter: 14:48 - Assessment and plan (1) Systolic CHF, acute Current Visit: Yes Status: Acute Assessment and plan: EF 35% on this admission with segmental wall motion abnormalities. Previous echo in February 2016 showed a normal EF with diastolic dysfunction. There is concern for coronary artery disease however the patient was seen by cardiology and was offered a left heart catheterization and the patient declined. We will continue with diuresis, patient is negative almost 8 L since admission. One more day of IV diuresis. Continue beta adeel. ACEi/ARB past been discontinued due to hyperkalemia present on admission. (2) Hyperkalemia, diminished renal excretion Current Visit: Yes Status: Acute Assessment and plan: Resolved. Continue to monitor. (3) Hypertension Current Visit: Yes Status: Chronic Assessment and plan: Blood pressures been elevated. Will increase beta adeel. Qualifiers: Hypertension type: essential hypertension Qualified Code(s): I10 - Essential (primary) hypertension (4) CAD (coronary artery disease) Current Visit: Yes Status: Chronic Assessment and plan: Patient chest pain-free at this time. Patient declined cardiac catheterization , status post held due to listed allergy. Qualifiers: Coronary Disease-Associated Artery/Lesion type: unspecified vessel or lesion type [place] vs. transplanted heart: [place] heart Associated angina: without angina Qualified Code(s): I25.10 - Atherosclerotic heart disease of [place] coronary artery without angina pectoris (5) CKD (chronic kidney disease) stage 3, GFR 30-59 ml/min Current Visit: Yes Status: Chronic Assessment and plan: Improvement from yesterday once IV diuresis was scaled back. Good urine output. Continue to monitor. (6) DVT prophylaxis Current Visit: Yes Status: Acute Assessment and plan: Subcutaneous heparin every 8 hours - Subjective Interval history: Patient seen and examined at bedside. Patient states that he feels pretty good at this time. He denies any shortness of breath, chest pain, he feels his lower respiratory swelling is much improving and is close to baseline. - Constitutional Vitals: Temp Pulse Resp BP Pulse Ox 97.2 F L 74 18 177/96 97 01/24/17 10:45 01/24/17 10:45 01/24/17 10:45 01/24/17 10:45 01/24/17 10:45 General appearance: Present: mild distress, A&O X 3, pleasant, obese, answers questions appropriately - Respiratory Respiratory exam: Present: CTAB. Absent: rales, rhonchi, wheezes - Cardiovascular Cardiovascular exam: Present: RRR. Absent: gallop, rubs, systolic murmur - GI/Abdominal GI/Abdominal exam: Present: normal bowel sounds, soft. Absent: distended, tenderness - Extremities Exam Extremities exam: Present: pedal edema (1+), warm. Absent: tenderness - Neurological Exam Neurological exam: Present: alert, CN II-XII intact, oriented X3, no focal deficits Internal Medicine: Result - Labs CBC & Chem 7: 01/24/17 06:06 01/24/17 06:06 Labs: Short CBC 01/24/17 Range/Units 06:06 WBC 7.4 (4.3-11.1) K/mcL Hgb 9.4 L (12.9-16.9) g/dL Hct 30.1 L (37.5-50.1) % Plt Count 211 (140-400) K/mcL Neutrophils # 4.7 (1.6-8.9) K/mcL BMP 01/23/17 01/24/17 13:43 06:06 Sodium 137 134 L Potassium 4.0 4.1 Chloride 99 100 Carbon Dioxide 28 27 BUN 33 H 31 H Creatinine 2.76 H 2.43 H Glucose 160 H 195 H Calcium 10.0 9.1 Liver Function 01/23/17 01/24/17 Range/Units 13:43 06:06 Total Bilirubin 0.5 (0.2-1.2) mg/dL AST 21 (5-34) Units/L ALT 10 (0-55) Units/L Alkaline Phosphatase 77 (38-126) Units/L Albumin 3.0 L 2.5 L (3.5-5.0) g/dL - ABG Interpretation ABG results: ABG ABG pH 7.38 pH Units (7.32-7.45) 01/21/17 06:50 ABG pCO2 43 mmHg (35-45) 01/21/17 06:50 ABG pO2 80 mmHg (85-104) L 01/21/17 06:50 ABG O2 Saturation 95 % (95-98) 01/21/17 06:50 PT/INR, D-dimer PT 13.8 Seconds (9.4-12.1) H 01/21/17 02:44 - Impressions Impressions Retroperitoneum Ultrasound 01/23/17 17:00 IMPRESSION: Echogenic kidneys compatible with medical renal disease. Findings are more severe on the right. D/ / Hayes Schwartz MD / Hayes Schwartz MD Interpreting Provider: Hayes Schwartz MD Consult Discharge Plan - Plan Referrals: Isamar Sofia CNP [Advanced Practice Nurse] - 02/07/17 3:00 pm Kimo Bhatti MD [Primary Care Provider] - 02/01/17 10:15 am <Fito Soto P - Last Filed: 01/24/17 17:26> Date of Encounter: 01/24/17 - Constitutional Vitals: Temp Pulse Resp BP Pulse Ox 98.3 F 74 18 134/88 97 01/24/17 15:38 01/24/17 15:38 01/24/17 15:38 01/24/17 15:38 01/24/17 15:38 Internal Medicine: Result - Labs CBC & Chem 7: 01/24/17 06:06 01/24/17 06:06 Labs: Short CBC 01/24/17 Range/Units 06:06 WBC 7.4 (4.3-11.1) K/mcL Hgb 9.4 L (12.9-16.9) g/dL Hct 30.1 L (37.5-50.1) % Plt Count 211 (140-400) K/mcL Neutrophils # 4.7 (1.6-8.9) K/mcL BMP 01/24/17 06:06 Sodium 134 L Potassium 4.1 Chloride 100 Carbon Dioxide 27 BUN 31 H Creatinine 2.43 H Glucose 195 H Calcium 9.1 Liver Function 01/24/17 Range/Units 06:06 Total Bilirubin 0.5 (0.2-1.2) mg/dL AST 21 (5-34) Units/L ALT 10 (0-55) Units/L Alkaline Phosphatase 77 (38-126) Units/L Albumin 2.5 L (3.5-5.0) g/dL - ABG Interpretation ABG results: ABG ABG pH 7.38 pH Units (7.32-7.45) 01/21/17 06:50 ABG pCO2 43 mmHg (35-45) 01/21/17 06:50 ABG pO2 80 mmHg (85-104) L 01/21/17 06:50 ABG O2 Saturation 95 % (95-98) 01/21/17 06:50 PT/INR, D-dimer PT 13.8 Seconds (9.4-12.1) H 01/21/17 02:44 - Impressions Impressions Retroperitoneum Ultrasound 01/23/17 17:00 IMPRESSION: Echogenic kidneys compatible with medical renal disease. Findings are more severe on the right. D/ / Hayes Schwartz MD / Hayes Schwartz MD Interpreting Provider: Hayes Schwartz MD - Attending Attestation I examined this patient and my medical decision-making was reviewed with the ENVIRONMENTAL HEALTH AND SAFETY INTERN/PA/Advanced Practice Nurse/Resident Physician. I agree with the documented findings, disposition and treatment plan as described except to the extent set forth below. Today realized that patient's creatinine has shown a downward trend. I discussed briefly with the nephrology regarding continuing diuresis. Nephrology agrees and we will continue IV Lasix for next 24 hours. We will recheck labs tomorrow and depending on that we will decide the further plan.
[2017-01-25] MEDS: Ipratropium/Albuterol Neb 3 ML IH SCH ×3 (03:39→11:24)
[2017-01-25 04:14] LABS: Basophils % 0.3 %; Eosinophils # 0.2 K/mcL (0.0-0.6); Eosinophils % 2.7 %; Hematocrit 32.9 % (37.5-50.1); Hemoglobin 10.4 g/dL (12.9-16.9); Immature Granulocytes % 0.8 % (0-4); Lymphocytes # 1.8 K/mcL (0.6-4.6); Lymphocytes % 20.7 %; Mean Corpuscular HGB Conc 31.6 g/dL (31.6-35.5); Mean Corpuscular Hemoglobin 25.9 pg (28.0-33.3); Mean Corpuscular Volume 81.8 fL (83.0-100.0); Mean Platelet Volume 9.6 fL (9.4-12.4); Monocytes # 0.9 K/mcL (0.0-1.3); Monocytes % 10.5 %; Neutrophils # 5.6 K/mcL (1.6-8.9); Platelet Count 240 K/mcL (140-400); Red Blood Count 4.02 M/mcL (4.19-5.50)
[2017-01-25 04:32] LABS: Calcium 9.6 mg/dL (8.6-10.8)
[2017-01-25] MEDS: *HR* Heparin 5,000 UNIT/ML VIAL SQ SCH (05:46)
[2017-01-25 07:16] VITALS: BP 164/89
--- NOTE | 2017-01-25 07:30 | Discharge Summary ---
<Nimesh Braswell - Last Filed: 01/25/17 07:28> Date of Encounter: 01/25/17 Time of Encounter: 07:28 - Discharge Diagnosis (1) Systolic CHF, acute Priority: Primary Status: Resolved (2) Hyperkalemia, diminished renal excretion Priority: Secondary Status: Resolved (3) Hypertension Priority: Secondary Status: Chronic Qualifiers: Hypertension type: essential hypertension Qualified Code(s): I10 - Essential (primary) hypertension (4) CAD (coronary artery disease) Priority: Secondary Status: Chronic Qualifiers: Coronary Disease-Associated Artery/Lesion type: unspecified vessel or lesion type [place] vs. transplanted heart: [place] heart Associated angina: without angina Qualified Code(s): I25.10 - Atherosclerotic heart disease of [place] coronary artery without angina pectoris (5) CKD (chronic kidney disease) stage 3, GFR 30-59 ml/min Priority: Secondary Status: Chronic (6) DVT prophylaxis Priority: Secondary Status: Inactive - Discharge Medications Prescriptions: Metoprolol XL (24 HR) Succ [Toprol Xl] 50 mg PO BID #30 tab.er.24h Home Medications: Acetaminophen [Tylenol] 650 mg PO Q6HR PRN 01/21/17 [History] Allopurinol [Zyloprim 100 MG] 100 mg PO DAILY 01/21/17 [History] Aspirin 81 mg PO DAILY 01/21/17 [History] Atenolol [Tenormin] 50 mg PO DAILY 01/21/17 [History] Citalopram [CeleXA] 20 mg PO DAILY 01/21/17 [History] Clopidogrel [Plavix] 75 mg PO DAILY 01/21/17 [History] Clotrimazole 1% CRM [Lotrimin 1%] 1 appl TP BID 01/21/17 [History] Fexofenadine HCl [Allergy Relief] 180 mg PO DAILY PRN 01/21/17 [History] Furosemide [Lasix] 40 mg PO DAILY 01/21/17 [History] Insulin Glargine,Hum.rec.anlog [Lantus Solostar] 15 unit SQ HS 01/21/17 [History ] Magnesium Oxide [Mgo] 400 mg PO DAILY 01/21/17 [History] Melatonin 5 mg PO HS 01/21/17 [History] NIFEdipine [Nifedipine ER] 60 mg PO DAILY 01/21/17 [History] Nitroglycerin [Nitrostat] 0.4 mg SL AD PRN 01/21/17 [History] Oxycodone HCl/Acetaminophen [Percocet 5-325 mg Tablet] 1 tab PO TID PRN [History] Pantoprazole Sodium [Protonix] 40 mg PO DAILY 01/21/17 [History] Metoprolol XL (24 HR) Succ [Toprol Xl] 50 mg PO BID #30 tab.er.24h 01/25/17 [Rx] Allergies/Adverse Reactions: Allergies Sthxvjb-Cvy-Wsl Reductase Inhibitor [Statins] Allergy (Verified 12/22/15 07:54) See Comments Procedures/tests Complete & Pending: Procedures Performed prior 72 hours Category Date Time Status Retroperitoneal Ultrasound - Complete [US Exams 01/23/17 17:00 Completed retroperitoneal comp] [US] Routine Date of admission: 01/21/17 05:14 Primary care physician: Kimo Bhatti MD Consults: 01/21/17 05:28 Consult to Nurse Navigator [CONS] Routine Comment: 01/21/17 11:49 Consult to Cardiology [CONS] Routine Comment: Consulting Provider: Cardiology Elisa Reason for Consult: Elevated troponins in the setting of heart failure Call Completed: Yes 01/22/17 08:01 Consult to Nephrology [CONS] Routine Consulting Provider: [facility]ney [facility] HTN [facility] Reason for Consult: CKD III Call Completed: Yes Discharging clinician: Nimesh Braswell Anticipated date of discharge: 01/25/17 - Patient Status Disposition: Home, Self-Care Condition: Good Functional capacity at discharge: independent ambulation Overall status at discharge: patient is progressing back to baseline - Discharge Instructions Instructions: Metoprolol (By mouth), Heart Failure (DC), Diabetes Mellitus Type 2 in Adults (DC), Chronic Hypertension (DC), Pneumonia (DC) Follow Up With: Isamar Sofia CNP [Advanced Practice Nurse] - 02/07/17 3:00 pm Kimo Bhatti MD [Primary Care Provider] - 02/01/17 10:15 am Additional Instructions: Please follow-up with your primary care physician as scheduled. Please follow-up with your kidney doctor as scheduled. Please follow-up with your established open die inspector. Please resume your home medications. Please continues to take Lasix 40 mg daily. Please take Toprol-XL 50 mg twice a day. Please return for any new or worsening symptoms. - Diet and Activity Activity: increase activity as tolerated Diet: low fat, low cholesterol, low salt diet Interval History: Patient seen and examined at bedside. Patient has no complaints at this time. Patient denies shortness of breath. He feels like his lower extremity swelling is improved. Hospital course: Mr. Bach is a 82 year old male with history of coronary artery disease, CKD presented with shortness of breath and lower extremity swelling.Upon evaluation the patient was found to have a decreased EF compared to 6 months ago. Patient was seen and evaluated by cardiology who offered a left heart catheterization but the patient declined. Patient was aggressively diuresed and responded well to IV diuresis. Patient had a total urine output of approximately 12.5 L during his stay. Patient was placed on medical management for his systolic heart failure including beta adeel. PRASHANT inhibitor/ARB was discontinued due to hyperkalemia. The patient will be discharged home in stable condition. - Time Spent with Patient Total time spent providing and/or coordinating discharge services: - Constitutional Vitals: Temp Pulse Resp BP Pulse Ox 98.3 F 66 18 164/89 94 01/25/17 07:09 01/25/17 07:09 01/25/17 07:09 01/25/17 07:09 01/25/17 07:09 General appearance: Present: A&O X 3, pleasant, obese, answers questions appropriately - Respiratory Respiratory exam: Present: CTAB. Absent: rales, rhonchi, wheezes - Cardiovascular Cardiovascular exam: Present: RRR. Absent: gallop, rubs, systolic murmur - GI/Abdominal GI/Abdominal exam: Present: normal bowel sounds, soft. Absent: distended, tenderness - Extremities Exam Extremities exam: Present: pedal edema (1+, improved from yesterday), warm. Absent: tenderness - Neurological Exam Neurological exam: Present: alert, CN II-XII intact, oriented X3, no focal deficits <Fito Soto P - Last Filed: 01/25/17 16:52> Date of Encounter: 01/25/17 Procedures/tests Complete & Pending: Procedures Performed prior 72 hours Category Date Time Status Retroperitoneal Ultrasound - Complete [US Exams 01/23/17 17:00 Completed retroperitoneal comp] [US] Routine Date of admission: 01/21/17 05:14 Primary care physician: Kimo Bhatti MD Consults: 01/21/17 05:28 Consult to Nurse Navigator [CONS] Routine Comment: 01/21/17 11:49 Consult to Cardiology [CONS] Routine Comment: Consulting Provider: Cardiology Elisa Reason for Consult: Elevated troponins in the setting of heart failure Call Completed: Yes 01/22/17 08:01 Consult to Nephrology [CONS] Routine Consulting Provider: Kidney [facility] HTN Sp[facility] Reason for Consult: CKD III Call Completed: Yes Hospital course: Mr. Bach is a 82 year old male - Time Spent with Patient Total time spent providing and/or coordinating discharge services: - Constitutional Vitals: Temp Pulse Resp BP Pulse Ox 98.3 F 66 18 164/89 94 01/25/17 07:09 01/25/17 07:09 01/25/17 07:09 01/25/17 07:09 01/25/17 07:09 - Attending Attestation I examined this patient and my medical decision-making was reviewed with the RADIOLOGIC TECHNOLOGIST CHIEF/PA/Advanced Practice Nurse/Resident Physician. I agree with the documented findings, disposition and treatment plan as described except to the extent set forth below. follow up with nephrology and cardiology
[2017-01-25 07:51] LABS: Alpha 2 Globulin (PEP) 1.22 g/dL (0.48-1.05); Beta Globulin (PEP) 0.98 g/dL (0.48-1.10)
[2017-01-25] MEDS: Metoprolol XL (24 HR) Succ 25 MG TAB.ER.24H PO SCH (09:06)
[2017-01-25] MEDS: Azithromycin 250 MG TABLET PO SCH (09:06)
[2017-01-25] MEDS: Aspirin 81 MG TAB.CHEW PO SCH (09:07)
[2017-01-25] MEDS: Insulin LISPRO 300 UNITS/3 ML VIAL SQ SCH (09:07)
[2017-01-25] MEDS: Isosorbide MONOnitrate (24 HR) 30 MG TAB.ER.24H PO SCH (09:07)
[2017-01-25] MEDS: Furosemide 40 MG/4 ML VIAL IVP SCH (09:07)
--- NOTE | 2017-01-25 12:09 | Nephrology Progress Note ---
Date of Encounter: 01/25/17 Time of Encounter: 11:30 - Assessment and Plan (1) CKD (chronic kidney disease) stage 4, GFR 15-29 ml/min Current Visit: Yes Status: Acute Stable CKD 4, baseline 2.5-2.6. Creat 2.30. Urine output 1800cc. Will receive iron infusion outpatient. Follow with us in office in two months with labs. Subjective Principal diagnosis: elevated troponin, demand ischemia in the setting of CHF Interval history: Laying in bed, watching tv. No new complaints. Awaiting discharge. Objective - Vital Signs Vital signs: Vital Signs Temp Pulse Resp BP Pulse Ox 01/25/17 07:09 98.3 F 66 18 164/89 94 01/25/17 04:45 98.2 F 88 18 146/77 97 01/25/17 00:25 96 01/24/17 23:08 16 96 01/24/17 21:23 98.5 F 83 16 138/95 95 01/24/17 20:20 95 01/24/17 19:54 18 95 01/24/17 15:38 98.3 F 74 18 134/88 97 01/24/17 15:31 18 96 Intake and Output 01/24/17 01/25/17 01/25/17 23:59 07:59 15:59 Intake Total 0 / 0 0 / 0 480 / 480 Output Total 100 / 100 200 / 200 Balance 0 / 0 -100 / -100 280 / 280 Intake: Oral 0 / 0 0 / 0 480 / 480 Output: Urine 100 / 100 200 / 200 Other: Meal Breakfast Percent of Meal Consumed 75% Stool Size Small Stool Consistency formed Stool Color Brown # Voids 1 1 # Bowel Movements 1 Weight 92.4 kg 92.4 kg Blood Glucose* 199 167 Patient Weight 01/25/17 23:59 Weight 92.4 kg - General Appearance General appearance: Present: well-developed, well-nourished, appears started age EENT: Present: mucous membranes moist Neck: Present: no JVD Respiratory: Present: clear Cardiology: Present: edema, regular rate, regular rhythm Gastrointestinal: Present: normoactive bowel sounds, no tenderness Integumentary: Present: warm and dry Neurologic: Present: alert and oriented x3 Psychiatric: Present: mood/affect appropriate, cooperative - Lab 01/25/17 03:51 01/25/17 03:51 Most recent lab results ABG pH 7.38 pH Units (7.32-7.45) 01/21/17 06:50 ABG pCO2 43 mmHg (35-45) 01/21/17 06:50 ABG pO2 80 mmHg (85-104) L 01/21/17 06:50 ABG HCO3 25.4 mEQ/L (21-27) 01/21/17 06:50 ABG O2 Saturation 95 % (95-98) 01/21/17 06:50 Calcium 9.6 mg/dL (8.6-10.8) 01/25/17 03:51 Phosphorus 3.1 mg/dL (2.3-4.7) 01/23/17 13:43 Magnesium 1.8 mg/dL (1.6-2.6) 01/21/17 02:44 Urine Creatinine 25 mg/dL 01/23/17 22:00 Consult Discharge Plan - Plan Instructions: Metoprolol (By mouth), Heart Failure (DC), Diabetes Mellitus Type 2 in Adults (DC), Chronic Hypertension (DC), Pneumonia (DC) Additional Instructions: Please follow-up with your primary care physician as scheduled. Please follow-up with your kidney doctor as scheduled. Please follow-up with your established administrative liaison. Please resume your home medications. Please continues to take Lasix 40 mg daily. Please take Toprol-XL 50 mg twice a day. Please return for any new or worsening symptoms. Referrals: Isamar Sofia CNP [Advanced Practice Nurse] - 02/07/17 3:00 pm Kimo Bhatti MD [Primary Care Provider] - 02/01/17 10:15 am Prescriptions: Metoprolol XL (24 HR) Succ [Toprol Xl] 50 mg PO BID #30 tab.er.24h
[2017-01-25 14:44] LABS: IFE Reflexed NOT DONE
[2017-01-26 16:37] LABS: Urine Collection Duration RANDOM hr; Urine Collection Volume RANDOM mL
--- NOTE | 2017-01-28 15:08 | Physician Discharge Referral ---
Home Health/Hosp Referral Info Transfer to: Home Health - Diagnosis (1) CHF exacerbation Priority: Primary Status: Acute (2) Chronic kidney disease, stage IV (severe) Priority: Primary Status: Acute (3) Type 2 diabetes mellitus with diabetic chronic kidney disease Priority: Secondary Status: Acute (4) Hypertension Priority: Secondary Status: Chronic (5) CAD (coronary artery disease) Priority: Secondary Status: Chronic - Respiratory Orders Smoking Cessation: Smoking cessation has been advised. For more information, call the [place] Tobacco Quit Line at 9-165-UDQC-NOW. - Diet/Nutrition Diet/Nutrition Orders: Regular, No Added Salt (HINA) - Activity Activity Orders: Ambulate - Services Needed Following services are medically necessary services: Nursing, Physical Therapy, Med Social Work - Transfer Medications Prescriptions: Metoprolol XL (24 HR) Succ [Toprol Xl] 50 mg PO BID #30 tab.er.24h Home Medications: Acetaminophen [Tylenol] 650 mg PO Q6HR PRN 01/21/17 [History] Allopurinol [Zyloprim 100 MG] 100 mg PO DAILY 01/21/17 [History] Aspirin 81 mg PO DAILY 01/21/17 [History] Atenolol [Tenormin] 50 mg PO DAILY 01/21/17 [History] Citalopram [CeleXA] 20 mg PO DAILY 01/21/17 [History] Clopidogrel [Plavix] 75 mg PO DAILY 01/21/17 [History] Clotrimazole 1% CRM [Lotrimin 1%] 1 appl TP BID 01/21/17 [History] Fexofenadine HCl [Allergy Relief] 180 mg PO DAILY PRN 01/21/17 [History] Furosemide [Lasix] 40 mg PO DAILY 01/21/17 [History] Insulin Glargine,Hum.rec.anlog [Lantus Solostar] 15 unit SQ HS 01/21/17 [History ] Magnesium Oxide [Mgo] 400 mg PO DAILY 01/21/17 [History] Melatonin 5 mg PO HS 01/21/17 [History] NIFEdipine [Nifedipine ER] 60 mg PO DAILY 01/21/17 [History] Nitroglycerin [Nitrostat] 0.4 mg SL AD PRN 01/21/17 [History] Oxycodone HCl/Acetaminophen [Percocet 5-325 mg Tablet] 1 tab PO TID PRN [History] Pantoprazole Sodium [Protonix] 40 mg PO DAILY 01/21/17 [History] Metoprolol XL (24 HR) Succ [Toprol Xl] 50 mg PO BID #30 tab.er.24h 01/25/17 [Rx] Allergies/Adverse Reactions: Allergies Sckgvtf-Oql-Xfm Reductase Inhibitor [Statins] Allergy (Verified 12/22/15 07:54) See Comments Certification: Further, I certify that my clinical findings support that this patient is homebound (i.e. absences from home require considerable and taxing effort and are for medical reasons or [facility] or infrequently or short duration when for other reasons) because: Homebound Reason: Patient requires assistance of a person or device to safely leave home Attestation: My signature below is to certify that this patient is under my care and that I, or nurse practitioner, or a physician's medical assistant per diem working with me, has a face-to -face encounter with this patient.
== END 2017-01-25 12:44 | disposition home or self-care (01) ==
LOC: 2NENU 01:59 → EMEROO 01:59 → 2NENU 05:00
PROVIDERS: ADMIT Family Medicine; ATTEND Internal Medicine